=== PATIENT | female | born 1960 | race Two or more races ===

== ENCOUNTER 2019-11-24 19:59 | Inpatient (IN) | payer OTHER ==
[~2019-11-24] VITALS: Ht 152.4 cm; Wt 115.0 kg
[2019-11-24] MEDS ORDERED: SODIUM CHLORIDE 0.9% 1,000 ML IV ONE (20:50)
[2019-11-24] MEDS ORDERED: IOHEXOL 300 MG/ML 100ML BOTTLE IJ ONE (21:01)
[2019-11-24 21:22] LABS: Basophils # (auto) 0 10 ^3/uL (0-0.2); Basophils % (auto) 0.2 % (0.0-2.0); Eosinophils # (auto) 0 10 ^3/uL (0-0.8); Eosinophils % (auto) 0.2 % (0.0-7.0); Hematocrit 36.6 % (36.0-46.0); Hemoglobin 12.1 g/dL (12.2-16.2); Lymphocytes # (auto) 1.7 10 ^3/uL (0.4-5.4); Lymphocytes % (auto) 11.9 % (10.0-50.0); Mean Corpuscular Hemoglobin 30.2 pg (28.0-32.0); Mean Corpuscular Hgb Conc. 32.9 g/dL (32.0-36.0); Mean Corpuscular Volume 91.8 fL (80.0-100.0); Monocytes # (auto) 1.4 10 ^3/uL (0-1.3); Monocytes % (auto) 9.8 % (0.0-12.0); Neutrophils # (auto) 11.3 10 ^3/uL (1.6-8.6); Neutrophils % (auto) 77.9 % (37.0-80.0); Platelet Count (auto) 300 10^3/uL (140-450); Red Blood Cells 3.99 10^6/uL (4.0-5.20); Red Cell Distribution Width 13.9 % (11.8-14.3); White Blood Cell 14.5 10^3/uL (4.4-10.8)
[2019-11-24 21:40] LABS: INR 1.22 (0.9-1.15); Partial Thromboplastin Time 30.5 sec (23.64-32.05)
[2019-11-24 21:44] LABS: Alanine Aminotransferase 62 U/L (13-56); Albumin 2.2 g/dL (3.4-5.0); Amylase 52 U/L (25-115); Anion Gap 8 (5-15); Blood Urea Nitrogen 17 mg/dL (7-18); Calcium 8.1 mg/dL (8.5-10.1); Carbon Dioxide 31 mmol/L (21-32); Chloride 91 mmol/L (98-107); Glucose 112 mg/dL (74-106); Lipase 124 U/L (73-393); Magnesium 2.1 mg/dL (1.6-2.6); Potassium 3.6 mmol/L (3.5-5.1); Sodium 130 mmol/L (136-145)
[2019-11-24 21:48] LABS: Alkaline Phosphatase 201 U/L (45-117); Aspartate Aminotransferase 94 U/L (15-37); BUN/Creatinine Ratio 18.9; Bilirubin, Total 1.3 mg/dL (0.2-1.0); GFR African American 82 mL/min; GFR Non-African American 68 mL/min; Total Protein 7.6 g/dL (6.4-8.2)
[2019-11-24] MEDS ORDERED: PIPERACILLIN-TAZOB 3.375GM 100 ML IV ONE (22:45)
[2019-11-24] MEDS ORDERED: VANCOMYCIN 1GM/250ML 250 ML IV ONE (22:45)
[2019-11-24] MEDS ORDERED: MORPHINE SULFATE 4 MG/ML SYR/VIAL IV ONE (23:00)
[2019-11-24] MEDS ORDERED: ONDANSETRON HCL 4 MG/2 ML VIAL IV ONE (23:00)
[2019-11-25] VITALS (41 sets, daily range): BP systolic 82–156; BP diastolic 33–80
[2019-11-25] MEDS ORDERED: ONDANSETRON HCL 4 MG/2 ML VIAL IV PRN (02:15)
[2019-11-25] MEDS: SODIUM CHLORIDE 0.9% 1,000 ML IV SCH ×2 (02:34→13:22)
[2019-11-25] MEDS ORDERED: MORPHINE SULF INJ 2 MG/ML SYRINGE 1ML IV PRN ×2 (02:45→15:15)
[2019-11-25] MEDS ORDERED: NITROGLYCERIN 0.4 MG SL TAB SL PRN (02:45)
--- NOTE | 2019-11-25 03:50 | NUR ---
Telemetry admit from [facility] FARRARMARCELLA admitted to Telemetry unit after SBAR received. Patient oriented to Rosa Cabrera, primary RN, unit, room, bed, and unit policies regarding patient care and visiting hours. Patient now on continuous telemetry monitoring, tele box # 58 and telemetry reading on arrival to unit is SR. Patient placed on bedside oxygen, weighed by bedscale and encouraged to call if they need something. All questions and concerns addressed, patient verbalized understanding.
--- NOTE | 2019-11-25 04:58 | NUR ---
Patient ambulating Patient ambulated with standby assist to restroom. Steady, even gait.
[2019-11-25] MEDS: MORPHINE SULFATE 4 MG/ML SYR/VIAL IV PRN ×2 (05:40→09:35)
[2019-11-25] MEDS ORDERED: metroNIDAZOLE 500MG/100ML 100 ML IV SCH (06:00)
[2019-11-25] MEDS: PIPERACILLIN-TAZOB 3.375GM 100 ML IV SCH ×3 (06:27→18:00)
--- NOTE | 2019-11-25 06:28 | NUR ---
Family updated Family called regarding update on patient. All questions answered and family updated on plan of care. Will continue to monitor.
[2019-11-25] MEDS ORDERED: PANTOPRAZOLE 40 MG/10 ML VIAL INJ IV SCH (10:00)
[2019-11-25 10:29] LABS: Urine Bacteria FEW /hpf (None Seen); Urine Blood Negative /uL (Negative); Urine WBC 3 /hpf (0 - 5)
[2019-11-25 10:35] LABS: Urine Specific Gravity > 1.050 (1.001-1.035)
[2019-11-25] MEDS ORDERED: GLYCOPYRROLATE 0.2 MG/ML 1ML VIAL ONE (11:39)
[2019-11-25] MEDS ORDERED: MIDAZOLAM HCL 1MG/1ML-2 ML VIAL ONE ×2 (11:39→14:42)
[2019-11-25] MEDS ORDERED: SODIUM CHLORIDE LOCK 10 ML ONE (11:39)
[2019-11-25] MEDS ORDERED: PROPOFOL 10 MG/ML 20 ML IV ONE (11:39)
[2019-11-25] MEDS ORDERED: MEPERIDINE HCL (50 MG/ML) 1 ML VIAL ONE (11:39)
[2019-11-25] MEDS ORDERED: NEOSTIGMINE 1 MG/ML INJ (10mg/10ML VIAL) ONE (11:39)
[2019-11-25] MEDS ORDERED: fentaNYL CITRATE 100 MCG/2 ML VL ONE ×2 (11:39→14:09)
[2019-11-25] MEDS ORDERED: ONDANSETRON HCL 4 MG/2 ML VIAL ONE (11:39)
[2019-11-25] MEDS ORDERED: ROCURONIUM 10MG/ML 10ML VIAL IV ONE (11:39)
--- NOTE | 2019-11-25 12:06 | NUR ---
TAKEN TO PRE OP REPORT GIVEN TO MICHELLE San
[2019-11-25] MEDS ORDERED: ceFAZolin 1GM/50ML 50 ML IV ONE (12:15)
[2019-11-25] MEDS ORDERED: POVIDONE IODINE 10 % TOPICAL OINT 30GM TOP ONE (12:26)
[2019-11-25] MEDS ORDERED: NOREPINEPHRINE 8 MG/250ML KIT 250 ML IV ONE (13:23)
--- NOTE | 2019-11-25 13:35 | NUR ---
OFF UNIT Addendum: 11/25/19 at 1336 by Chhaya Eldridge RN Amended: Links added.
--- NOTE | 2019-11-25 14:13 | NUR ---
REPORT GIVEN TO LINDA San PATIENT WILL BE GOING TO ICU
[2019-11-25] MEDS ORDERED: HYDROmorphone HCL 2 MG/ML VL ONE (14:15)
[2019-11-25] MEDS ORDERED: SODIUM CHLORIDE 0.9% 1,000 ML IV SCH (15:00)
[2019-11-25] MEDS ORDERED: VANCOMYCIN PER PHARMACY 0 MG IV SCH ×2 (15:00→16:00)
[2019-11-25] MEDS ORDERED: D5W/SOD CHL 0.45%/KCL 20MEQ 1,000 ML IV ONE (15:00)
--- NOTE | 2019-11-25 15:15 | NUR ---
consult for Advanced directive Per consult, Patient requesting info on Advanced directive. Patient has been provided with advanced directive. Addendum: 11/25/19 at 1516 by Leigha Mariscal Amended: Links added.
--- NOTE | 2019-11-25 15:18 | NUR ---
RECEIVED PATIENT FROM OR PER BED ON PORTABLE RESIDENTIAL SALES CONSULTANT AND PORTABLE O2 ACCOMPANIED PER DR COHEN, RN X 2 AND RT. PATIENT ON VENTILATOR - SEE CHARTED SETTINGS. PATIENT ON LEVOPHED AT 20MCG. ABD DRSG DRY AND INTACT WITH LOWER JPX1 AND BILAT UPPER ABD SHANE DRAINS X 2 - ALL ARE DRAINING SEROSANG DRNG. NG ATTACHED TO LIWS - NO DRNG OBTAINED. KING DRAINING SCANT AMT CLOUDY DK MELISSA URINE.
[2019-11-25] MEDS: ALBUMIN 25% 100 ML IV SCH ×3 (15:55→23:15)
[2019-11-25] MEDS: D5W/SOD CHL 0.45%/KCL 20MEQ 1,000 ML IV SCH ×2 (15:56→20:15)
--- NOTE | 2019-11-25 16:00 | NUR ---
DR GUZMAN VISITS AND EXAMINES PATIENT - ORDERS RECEIVED.
[2019-11-25 16:03] LABS: Hematocrit 35.2 % (36.0-46.0); Hemoglobin 11.4 g/dL (12.2-16.2); Mean Corpuscular Hemoglobin 30.4 pg (28.0-32.0); Mean Corpuscular Hgb Conc. 32.5 g/dL (32.0-36.0); Mean Corpuscular Volume 93.5 fL (80.0-100.0); Platelet Count (auto) 293 10^3/uL (140-450); Red Blood Cells 3.76 10^6/uL (4.0-5.20); Red Cell Distribution Width 14.5 % (11.8-14.3); White Blood Cell 17.9 10^3/uL (4.4-10.8)
[2019-11-25 16:05] LABS: Basophils % (manual) 0 (0.0-2.0); Blast Cells 0; Eosinophils % (manual) 0 (0-7); Promyelocytes % 0; Reactive Lymphocytes 0
[2019-11-25 16:15] LABS: Band Neutrophils % (manual) 22; Lymphocytes % (manual) 5 (10.0-50.0); Metamyelocytes % 6; Monocytes % (manual) 8 (0-12); Myelocytes % 1
--- NOTE | 2019-11-25 16:30 | NUR ---
DR CAI VISITS AND EXAMINES PATIENT-ORDERS RECEIVED.
--- NOTE | 2019-11-25 16:30 | NUR ---
DR CORRALES NOTIFIED OF PATIENT'S VS AND ABGS - ORDERS RECEIVED.
[2019-11-25 16:40] LABS: Calcium 7.2 mg/dL (8.5-10.1); Potassium 3.4 mmol/L (3.5-5.1)
[2019-11-25 16:41] LABS: BUN/Creatinine Ratio 11.2
[2019-11-25] MEDS ORDERED: VANCOMYCIN 1GM/250ML 250 ML IV SCH (17:00)
--- NOTE | 2019-11-25 17:00 | NUR ---
2D ECHO DONE AT BEDSIDE
--- NOTE | 2019-11-25 17:10 | NUR ---
JERAD SERVICE AIDE VISITS AND EXAMINES PATIENT-NO NEW ORDERS RECEIVED.
[2019-11-25] MEDS ORDERED: fentaNYL Drip 2500mCg/250mlNS 250 ML IV ONE (17:36)
--- NOTE | 2019-11-25 17:45 | NUR ---
SOLID PLASTERER SPOKE TO PATIENT'S DAUGHTER WHO IS AN RN - UPDATED HER ON PATIENT CONDITION - VERBALIZES UNDERSTANDING - TEARFUL - SUPPORT GIVEN. DAUGHTER REQUESTING TO VISIT - SUMMER INTERN NOTIFIED AND GRANTED PERMISSION DUE TO PATIENT'S CRITICAL CONDITION AND GUARDED PROGNOSIS. PATIENT'S SON PHONES - GIVEN MINIMAL UPDATE - VERBALIZED UNDERSTANDING OF PATIENT'S DAUGHTER TO BE LADIES UNDERWEAR OPERATOR.
[2019-11-25] MEDS: VANCOMYCIN 1GM/250ML 250 ML IV SCH (17:54)
[2019-11-25] MEDS: fentaNYL Drip 2500mCg/250mlNS 250 ML IV SCH (17:56)
[2019-11-25] MEDS: MIDAZOLAM DRIP 50 mg/50mL 50 ML IV SCH (17:57)
--- NOTE | 2019-11-25 18:30 | NUR ---
DR CORRALES NOTIFIED OF ABG RESULTS, VS, LOW URINE OUTPUT - NO NEW ORDERS RECEIVED.
--- NOTE | 2019-11-25 18:50 | NUR ---
PICC RN AT BEDSIDE TO PLACE PICC LINE.
[2019-11-25] MEDS: PROPOFOL 100 ML IV SCH (19:00)
--- NOTE | 2019-11-25 19:00 | NUR ---
Opening shift note: Primary RN Dariel received report on patient. Patient intubated ETT 7.0/23@LL, VENT settings: AC 18, TV 500, FIO2 40, PEEP 5, O2 Sat 100%, bilateral lungs clear. Solomon catheter draining via gravity with yellow urine. Safety precautions in place. Will continue to monitor.
[2019-11-25] MEDS: NOREPINEPHRINE 8 MG/250ML KIT 250 ML IV SCH (20:00)
--- NOTE | 2019-11-25 20:02 | NUR ---
PICC line placement Patient/Patient significant other educated on need for PICC line placement. All risks and benefits explained and all questions and concerns addressed prior to procedure. Noted past medical history and allergies with no contraindications. INR and Plt counts within acceptable range. 5 fr PICC line inserted via LEFT BASILIC vein using [employer] US and Tip Location System. Sterile technique with maximum barrier precautions utilized. Blood return obtained from each of 3 lumens and each flushed easily with NS using proper technique. PICC secured with Stat-lock; biodisc and occlusive dressing applied. Stat portable chest x-ray obtained for PICC tip placement. *Baseline Arm Circumference 38CM. PICC lot #[id number]. Note:TOOK 2 ATTEMPTS. SECOND ATTEMPT PLACED EASILY WITH NO RESISTANCE.
[2019-11-25] MEDS ORDERED: LIDOCAINE 1% (LOCAL ANESTH.) PF 5ml SDV ID ONE (20:15)
[2019-11-25] MEDS: SODIUM CHLOR 0.9% PF (SALINE LOCK) 10ML VIAL/SYR IV SCH (22:00)
[2019-11-25] MEDS: metroNIDAZOLE 500MG/100ML 100 ML IV SCH (22:00)
[2019-11-26] VITALS (90 sets, daily range): BP systolic 83–161; BP diastolic 33–108
--- NOTE | 2019-11-26 | NUR ---
SHANE DRAINS: SHANE#1 -50ML SANGUINEOUS DRAINAGE. SHANE#2 -50ML SANGUINEOUS DRAINAGE. SHANE#3 -30ML SANGUINEOUS DRAINAGE.
--- NOTE | 2019-11-26 01:00 | NUR ---
Care endorsed to Luther COKER.
[2019-11-26] MEDS: D5W/SOD CHL 0.45%/KCL 20MEQ 1,000 ML IV SCH ×2 (01:15→06:15)
[2019-11-26] MEDS: VANCOMYCIN 1GM/250ML 250 ML IV SCH (03:30)
[2019-11-26 04:06] LABS: Basophils # (auto) 0 10 ^3/uL (0-0.2); Basophils % (auto) 0.1 % (0.0-2.0); Eosinophils # (auto) 0 10 ^3/uL (0-0.8); Eosinophils % (auto) 0.1 % (0.0-7.0); Hematocrit 28.9 % (36.0-46.0); Hemoglobin 9.6 g/dL (12.2-16.2); Lymphocytes # (auto) 0.8 10 ^3/uL (0.4-5.4); Lymphocytes % (auto) 6.1 % (10.0-50.0); Mean Corpuscular Hemoglobin 31.2 pg (28.0-32.0); Mean Corpuscular Hgb Conc. 33.3 g/dL (32.0-36.0); Mean Corpuscular Volume 93.6 fL (80.0-100.0); Monocytes # (auto) 0.3 10 ^3/uL (0-1.3); Monocytes % (auto) 2.5 % (0.0-12.0); Neutrophils # (auto) 12.3 10 ^3/uL (1.6-8.6); Neutrophils % (auto) 91.2 % (37.0-80.0); Platelet Count (auto) 231 10^3/uL (140-450); Red Blood Cells 3.09 10^6/uL (4.0-5.20); Red Cell Distribution Width 14.7 % (11.8-14.3); White Blood Cell 13.5 10^3/uL (4.4-10.8)
[2019-11-26 04:17] LABS: Chloride 98 mmol/L (98-107); Magnesium 1.6 mg/dL (1.6-2.6); Sodium 129 mmol/L (136-145)
[2019-11-26 04:26] LABS: Alanine Aminotransferase 46 U/L (13-56); Albumin 2.4 g/dL (3.4-5.0); Alkaline Phosphatase 115 U/L (45-117); Anion Gap 7 (5-15); Aspartate Aminotransferase 71 U/L (15-37); BUN/Creatinine Ratio 14.2; Bilirubin, Direct 1.5 mg/dL (0-0.2); Bilirubin, Total 2.3 mg/dL (0.2-1.0); Blood Urea Nitrogen 19 mg/dL (7-18); Calcium 6.7 mg/dL (8.5-10.1); Carbon Dioxide 24 mmol/L (21-32); Cholesterol < 50 mg/dL (< 200); GFR African American 52 mL/min; GFR Non-African American 43 mL/min; Glucose 331 mg/dL (74-106); HDL Cholesterol 6 mg/dL (40-59); LDL Cholesterol 8 mg/dL (< 100); Total Protein 5.6 g/dL (6.4-8.2); Triglycerides 56 mg/dL (< 150)
[2019-11-26] MEDS: metroNIDAZOLE 500MG/100ML 100 ML IV SCH ×3 (05:46→22:00)
[2019-11-26] MEDS: PIPERACILLIN-TAZOB 3.375GM 100 ML IV SCH ×3 (06:22→14:29)
[2019-11-26] MEDS ORDERED: MAGNESIUM SULFATE 1GM/100ML 100 ML IV ONE (08:00)
--- NOTE | 2019-11-26 08:00 | NUR ---
JERAD STALLWORTH LEGAL SERVICE SPECIALIST VISITS AND EXAMINES PATIENT - ORDER RECEIVED.
[2019-11-26] MEDS: NOREPINEPHRINE 8 MG/250ML KIT 250 ML IV SCH ×2 (09:51→15:06)
[2019-11-26] MEDS: SODIUM CHLOR 0.9% PF (SALINE LOCK) 10ML VIAL/SYR IV SCH ×2 (09:54→22:19)
[2019-11-26] MEDS: PANTOPRAZOLE 40 MG/10 ML VIAL INJ IV SCH (10:41)
--- NOTE | 2019-11-26 12:30 | NUR ---
DR MCGEE VISITS AND EXAMINES PATIENT -ORDERS RECEIVED.
[2019-11-26] MEDS: PHENYLEPHRINE IV 250 ML IV SCH ×2 (12:40→21:00)
--- NOTE | 2019-11-26 12:45 | NUR ---
RECEIVED CONSENT PER PHONE FROM PATIENT'S DAUGHTER FOR ARTERIAL INSERTION.
--- NOTE | 2019-11-26 12:45 | NUR ---
DR CORRALES VISITS AND EXAMINES PATIENT - ORDERS RECEIVED.
[2019-11-26] MEDS ORDERED: D5W/SOD CHL 0.45%/KCL 20MEQ 1,000 ML IV ONE (12:53)
[2019-11-26] MEDS ORDERED: D5W/SOD CHL 0.45%/KCL 20MEQ 1,000 ML IV SCH (13:00)
--- NOTE | 2019-11-26 13:00 | NUR ---
DR CORRALES PHONES PATIENT'S DAUGHTER - GAVE UPDATE ON CURRENT PATIENT CONDITION, QUESTIONS REGARDING SURGERY, POC AND CRITICAL PROGNOSIS - DAUGHTER VERBALIZES UNDERSTANDING.
[2019-11-26] MEDS: LINEZOLID 600MG/300ML 300 ML IV SCH ×2 (14:45→22:00)
[2019-11-26] MEDS ORDERED: MEROPENEM 1GM IVPB 100 ML IV SCH (14:45)
--- NOTE | 2019-11-26 14:45 | NUR ---
DR CAI VISITS AND EXAMINES PATIENT - ORDERS RECEIVED.
--- NOTE | 2019-11-26 16:30 | NUR ---
DR DENT AT BEDSIDE - PLACED RIGHT FEMORAL A-LINE
[2019-11-26] MEDS: PROPOFOL 100 ML IV SCH (16:41)
--- NOTE | 2019-11-26 17:30 | NUR ---
DR CORRALES NOTIFIED OF TEMP 101.4 - ORDERS RECEIVED.
[2019-11-26] MEDS ORDERED: ACETAMINOPHEN 650 MG RECT SUPP PR PRN (17:45)
[2019-11-26 17:48] LABS: Hemoglobin 9.2 g/dL (12.2-16.2)
[2019-11-26 17:52] LABS: Hematocrit 29.6 % (36.0-46.0)
[2019-11-26 18:06] LABS: Potassium 5.3 mmol/L (3.5-5.1)
[2019-11-26 18:12] LABS: BUN/Creatinine Ratio 9.4; Calcium 6.1 mg/dL (8.5-10.1)
[2019-11-26] MEDS: MIDAZOLAM DRIP 50 mg/50mL 50 ML IV SCH ×2 (18:14→19:14)
--- NOTE | 2019-11-26 18:25 | NUR ---
DR CORRALES NOTIFIED OF GLUCOSE 673 AND REMAINDER OF BMP - ORDERS RECEIVED.
[2019-11-26] MEDS ORDERED: InsuLIN R (HUMAN) 100 UNITS in SODIUM CHL 0.9% 99 ML IV SCH (18:26)
[2019-11-26] MEDS ORDERED: DEXTROSE (50%) 50ML SYRG IV PRN (18:30)
--- NOTE | 2019-11-26 18:40 | NUR ---
DR CORRALES NOTIFIED OF ABG RESULTS- NO NEW ORDERS RECEIVED.
[2019-11-26] MEDS: MEROPENEM 1GM IVPB 100 ML IV SCH (18:47)
[2019-11-26] MEDS: fentaNYL Drip 2500mCg/250mlNS 250 ML IV SCH (18:54)
[2019-11-26] MEDS: SODIUM CHLORIDE 0.9% 1,000 ML IV SCH (18:55)
[2019-11-26] MEDS: ACCU-CHEK COMFORT CURVE STRIP VI SCH ×3 (19:30→22:30)
--- NOTE | 2019-11-26 21:30 | NUR ---
FIRST AID ATTENDANT NOTIFIED PATIENT'S DAUGHTER MICHELLE OF PATIENT CONDITION - VERBALIZED UNDERSTANDING.
[2019-11-27] VITALS (104 sets, daily range): BP systolic 70–163; BP diastolic 32–105
[2019-11-27 02:35] LABS: Anion Gap 8 (5-15); Blood Urea Nitrogen 8 mg/dL (7-18); Carbon Dioxide 22 mmol/L (21-32); Chloride 103 mmol/L (98-107); Glucose 153 mg/dL (74-106); Potassium 3.9 mmol/L (3.5-5.1)
[2019-11-27 02:36] LABS: Alanine Aminotransferase 41 U/L (13-56); Alkaline Phosphatase 115 U/L (45-117); Aspartate Aminotransferase 57 U/L (15-37); BUN/Creatinine Ratio 10.8; Bilirubin, Total 2.4 mg/dL (0.2-1.0); Calcium 7.2 mg/dL (8.5-10.1); GFR African American 103 mL/min; GFR Non-African American 85 mL/min; Total Protein 5.4 g/dL (6.4-8.2)
[2019-11-27 02:37] LABS: Sodium 133 mmol/L (136-145)
[2019-11-27 03:59] LABS: Basophils # (auto) 0 10 ^3/uL (0-0.2); Basophils % (auto) 0.2 % (0.0-2.0); Eosinophils # (auto) 0.1 10 ^3/uL (0-0.8); Eosinophils % (auto) 0.5 % (0.0-7.0); Hematocrit 32.4 % (36.0-46.0); Hemoglobin 10.5 g/dL (12.2-16.2); Lymphocytes # (auto) 1.6 10 ^3/uL (0.4-5.4); Lymphocytes % (auto) 9.1 % (10.0-50.0); Mean Corpuscular Hemoglobin 29.9 pg (28.0-32.0); Mean Corpuscular Hgb Conc. 32.4 g/dL (32.0-36.0); Mean Corpuscular Volume 92.1 fL (80.0-100.0); Monocytes # (auto) 0.8 10 ^3/uL (0-1.3); Monocytes % (auto) 4.4 % (0.0-12.0); Neutrophils % (auto) 85.8 % (37.0-80.0); Platelet Count (auto) 224 10^3/uL (140-450); Red Blood Cells 3.51 10^6/uL (4.0-5.20); Red Cell Distribution Width 14.6 % (11.8-14.3); White Blood Cell 17.5 10^3/uL (4.4-10.8)
[2019-11-27] MEDS: MEROPENEM 1GM IVPB 100 ML IV SCH ×2 (05:00→15:26)
[2019-11-27] MEDS: PHENYLEPHRINE IV 250 ML IV SCH ×3 (05:20→22:00)
[2019-11-27] MEDS: metroNIDAZOLE 500MG/100ML 100 ML IV SCH ×3 (06:00→22:00)
--- NOTE | 2019-11-27 08:00 | NUR ---
AM ASSESSMENT COMPLETED. ALL GTTS VERIFIED. ALL ALARMS VERIFIED. ORAL CARE RENDERED. PT CURRENTLY VENTILATED SEDATED S/P GALLBLADDER SURGERY, PT HAS 3 SHANE DRAINS TO BULB SUCTION. SHANE #1 DRAINING SEROUS FLUID SHANE #2 DRAINING BILE COLOR FLUID SHANE # 3 WITH MINIMAL SEROUS DRAINAGE. PT HAS AN ABDOMINAL BINDER IN PLACE SURGICAL DRESSING REMAINS CLEAN DRY AND INTACT. PT REMAINING SKIN REMAIN INTACT.
[2019-11-27] MEDS: NOREPINEPHRINE 8 MG/250ML KIT 250 ML IV SCH ×2 (08:14→15:20)
--- NOTE | 2019-11-27 08:50 | NUR ---
PT'S DAUGHTER CALLED TO GET A DETAIL UPDATE OF PT'S CONDITION UPDATED ON PT'S AM LABS CURRENT GTT'S . AM CHEST X-RAY RESULTS. PT'S DAUGHTER IS A HULL DRAFTER. PT'S DAUGHTER WILL CALL LATER TO HAVE PORTABLE PHONE PLACED IN PT'S EAR, SO SHE CAN SPEAK TO PT WHILE PT REMAINS ON VENTILATOR.
[2019-11-27] MEDS: PANTOPRAZOLE 40 MG/10 ML VIAL INJ IV SCH (09:26)
[2019-11-27] MEDS: LINEZOLID 600MG/300ML 300 ML IV SCH ×2 (09:26→22:00)
[2019-11-27] MEDS: SODIUM CHLOR 0.9% PF (SALINE LOCK) 10ML VIAL/SYR IV SCH ×2 (09:26→22:26)
[2019-11-27] MEDS ORDERED: FUROSEMIDE 40 MG/4 ML VIAL IV ONE (11:00)
--- NOTE | 2019-11-27 11:46 | NUR ---
Nutrition Assessment note: Please see attached link for complete assessment Est. Energy Needs ABW 86 [id number] kcal (17-20kcal/kg ABW), Est. Protein Needs: 86-94 gms/day (1.0-1.1 gms/kg Adj.BW). Addendum: 11/27/19 at [address]7 [address] Susan Ordoñez RD Amended: Links added.
[2019-11-27] MEDS: SODIUM CHLORIDE 0.9% 1,000 ML IV SCH ×2 (14:21→21:10)
--- NOTE | 2019-11-27 15:55 | NUR ---
PLACED ON CPAP BY RT HERR PT WAS FULLY AWAKE FOLLOWING COMMANDS. PT ONLY ON 25 MCG OF FENTANYL AT THIS TIME FOR COMFORT. PT JUST REPOSITIONED AT THIS TIME FOR COMFORT. PT UNDERSTANDS BOTH [place] AND [place]CC[place]. DR MARTINES ORDERED THE CPAP TRIAL.
[2019-11-27] MEDS: PROPOFOL 100 ML IV SCH (16:41)
--- NOTE | 2019-11-27 16:59 | NUR ---
RT NOTE: VM LEFT FOR DR. JOHNS FOR ABG RESULTS, AND LUNG MECHANICS FOR CPAP TRIAL.
--- NOTE | 2019-11-27 17:24 | NUR ---
CALLED AND LEFT A MESSAGE ON DR. JOHNS CELLPHONE WITH ABG AND WEANING PARAMETER'S RESULTS, LEFT CALL BACK #. HAD SAID IF NUMBERS WERE OK, PT COULD BE EXTUBATED. JUST WANTED TO RUN THE #'S BY HIM VC A LITTLE LOW, BUT EXPECTED CONSIDERING PT'S ABDOMINAL SURGERY. PT IS AWAKE BUT A LITTLE DROWSY. WILL GIVE SOME TIME FOR DOCTOR TO CALL BACK WITH EXTUBATION ORDERS. SUPERVISOR NET MAKINGSHEELA WORRELL.
[2019-11-27] MEDS: fentaNYL Drip 2500mCg/250mlNS 250 ML IV SCH (17:33)
--- NOTE | 2019-11-27 17:43 | NUR ---
MD CALLED BACK HE OK FOR PT TO BE EXTUBATED.
--- NOTE | 2019-11-27 19:57 | NUR ---
ADMITTED WITH ABDOMINAL PAIN, DISTENTION. 11/24 DR CORRALES PERFORMED SURGERY FOR A GANGRENOUS PERFORATED GALLBLADDER. 11/27/19 EXTUBATED AT 1825. ON COOL MIST FACE MASK. NGT REMAINS AND IS HOOKED TO LIS. KING IN PLACE AND IS DRAINING MELISSA LIQUID. HAD A ONE TIME DOSE OF LASIX TODAY WITH DIURESIS. MAINTENANCE FLUID AT 75CC/HR AND IS ON LEVOPHED. AT 14 MCG. MIDLINE INCISION WITH DRY DRESSING. 3 SHANE DRAINS. REMAINS NPO. BILATERAL MITTENS ON. 11/26/19 ARTERIAL LINE PLACED IN RIGHT FEMORAL.
--- NOTE | 2019-11-27 22:00 | NUR ---
PATIENT IS VERY SLEEPY. WAKES UP TO NAME. NOT FOLLOWING COMMANDS. REPOSITIONED TO HER RIGHT SIDE. OPENED UP ABDOMINAL BINDER TO VIEW INCISION AND SHANE SITES. INCISIONAL DRESSING IS CLEAN AND DRY. ALL 3 SHANE SITE DRESSING SHOW DRNG. ALL JPS ARE DRAINING. REFASTENED THE ABDOMINAL BINDER. PICC LINE DRESSING CHANGE. SITE OF ENTRY IS CLEAN, DRY AND NO REDNESS. SCDS ON. DOES NOT HELP WITH TURNING. LUNGS CLEAR. RT IN ROOM REMOVING THE COOL MIST AND APPLYING THE NASAL CANNULA. NOW ON 3LNP. O2 SAT IS 98%.
--- NOTE | 2019-11-27 23:29 | NUR ---
PATIENT PULLED OUT HER NGT.
[2019-11-28] VITALS (96 sets, daily range): BP systolic 77–157; BP diastolic 39–121
--- NOTE | 2019-11-28 | NUR ---
MOVED CUFF TO LEFT LOWER ARM. CUFF PRESSURE MUCH HIGHER. SINUS TACHYCARDIA WITH A RARE PVC. 3LNP. SATURATION GOOD. KEEPS TAKING DOWN GOWN AND EXPOSING HER BREASTS. I KEEP PULLING IT BACK UP. NO FEVER. DIAPHORETIC. NO CHANGE IN ABDOMINAL DRESSINGS. EMPTIED THE JPS. ALL PULSES PALPABLE. ALL EXTREMITIES ARE WARM.
[2019-11-28] MEDS: NOREPINEPHRINE 8 MG/250ML KIT 250 ML IV SCH (00:49)
--- NOTE | 2019-11-28 03:00 | NUR ---
CHG BATH AND COMPLETE LINEN CHANGE . ABDOMINAL DRESSING CHANGE. INCISION WELL APPROXIMATED/STAPLED/NO REDNESS OR DRNG. JPS ARE DRAINING.
--- NOTE | 2019-11-28 04:00 | NUR ---
LEVO AT 4 MCG. PATIENT REMAINS SLEEPY. DOES NOT CONVERSE OR TRY TO OPEN EYES ANY MORE THAN WHAT SHE NEEDS TO. REPOSITIONED. PRODUCTIVE COUGGH OF THICK YELLOW SECRETIONS
[2019-11-28 04:01] LABS: Basophils % (auto) 0.4 % (0.0-2.0); Eosinophils % (auto) 0.8 % (0.0-7.0); Lymphocytes % (auto) 11.7 % (10.0-50.0); Monocytes % (auto) 5.2 % (0.0-12.0); Neutrophils % (auto) 81.9 % (37.0-80.0); Nucleated Red Blood Cells % 0.1 %; White Blood Cell 13.6 10^3/uL (4.4-10.8)
[2019-11-28 04:02] LABS: Basophils # (auto) 0 10 ^3/uL (0-0.2); Eosinophils # (auto) 0.1 10 ^3/uL (0-0.8); Hematocrit 31.3 % (36.0-46.0); Hemoglobin 10.4 g/dL (12.2-16.2); Lymphocytes # (auto) 1.6 10 ^3/uL (0.4-5.4); Mean Corpuscular Hemoglobin 30.6 pg (28.0-32.0); Mean Corpuscular Hgb Conc. 33.4 g/dL (32.0-36.0); Mean Corpuscular Volume 91.7 fL (80.0-100.0); Monocytes # (auto) 0.7 10 ^3/uL (0-1.3); Neutrophils # (auto) 11.1 10 ^3/uL (1.6-8.6); Platelet Count (auto) 195 10^3/uL (140-450); Red Blood Cells 3.41 10^6/uL (4.0-5.20); Red Cell Distribution Width 14.5 % (11.8-14.3)
[2019-11-28 04:14] LABS: Albumin 1.6 g/dL (3.4-5.0); Calcium 7.2 mg/dL (8.5-10.1); Potassium 4.3 mmol/L (3.5-5.1)
[2019-11-28 04:16] LABS: BUN/Creatinine Ratio 18.9
[2019-11-28 04:19] LABS: Bilirubin, Total 2.3 mg/dL (0.2-1.0); Total Protein 5.1 g/dL (6.4-8.2)
--- NOTE | 2019-11-28 06:00 | NUR ---
SHE WILL NOT OPEN HER EYES AND TALK TO ME. YET, SHE SEEMS TO UNDERSTAND WHAT WE SAY. DOES NOT HELP WITH TURNING. JPS EMPTIED. UNABLE TO WEAN DOWN THE LEVOPHED MORE. FEBRILE.
[2019-11-28] MEDS: PHENYLEPHRINE IV 250 ML IV SCH ×2 (06:20→14:40)
[2019-11-28] MEDS: metroNIDAZOLE 500MG/100ML 100 ML IV SCH ×3 (06:29→21:36)
--- NOTE | 2019-11-28 06:31 | NUR ---
Respiratory note: PT RESTING COMFORTABLY. NO RESPIRATORY DISTRESS NOTED. SPO2 97% ON 3L NC, HR 81, RR 32, BS COARSE/DIMINISHED BILATERALLY. WILL CONTINUE TO MONITOR PT.
--- NOTE | 2019-11-28 06:55 | NUR ---
SHANE #1 150CC SERO-SANG #2 105CC BILE COLOR #3 17 CC OF SEROUS CL
[2019-11-28] MEDS ORDERED: HYDROCORTISONE SOD SUCC 100 MG/2ML INJ VIAL IV ONE (08:45)
[2019-11-28] MEDS: MEROPENEM 1GM IVPB 100 ML IV SCH ×3 (09:16→18:24)
[2019-11-28] MEDS: SODIUM CHLORIDE 0.9% 1,000 ML IV SCH ×2 (10:30→23:50)
[2019-11-28] MEDS: PANTOPRAZOLE 40 MG/10 ML VIAL INJ IV SCH (10:40)
[2019-11-28] MEDS: SODIUM CHLOR 0.9% PF (SALINE LOCK) 10ML VIAL/SYR IV SCH ×2 (10:40→21:36)
[2019-11-28] MEDS: HYDROmorphone HCL 2 MG/ML VL IV PRN (10:41)
[2019-11-28] MEDS: LINEZOLID 600MG/300ML 300 ML IV SCH ×2 (10:42→21:42)
[2019-11-28] MEDS ORDERED: FUROSEMIDE 40 MG/4 ML VIAL IV ONE (15:00)
[2019-11-28] MEDS: FLUCONAZOLE 200MG/100ML 100 ML IV SCH ×2 (15:44→16:53)
--- NOTE | 2019-11-28 19:45 | NUR ---
SBP LOW PER CUFF. REPOSITIONED PATIENT TO BACK AND SYSTOLIC IMPROVED. NO LEVOPHED
--- NOTE | 2019-11-28 20:00 | NUR ---
ADMITTED ON 11/24/2019. ABDOMINAL PAIN. ON 11/25/19 DR CORRALES TOOK HER TO THE OR AND REMOVED A GANGRENOUS GALLBLADDER. HAS A MIDLINE INCISION AND 3 SHANE DRAINS. SPEAKS ON BRUNEIAN. DOES NOT OPEN HER EYES AND ANSWER TO WELSH. LUNGS CLEAR. O2 AT 3LNP. NO DYSPNEA. SCDS ON. PICC LINE WITH MAINTENANCE FLUID. NSR WITHOUT ECTOPY. OBESE, LARGE, ROUND , SOFT ABDOMEN WITH ABDOMINAL BINDER ON. KING IN POSITION AND IS TO A DOWN DRAIN BAG. URINE IS AN MELISSA COLOR WITH SEDIMENT. YADIRA DOWNGRADE ORDERS.
--- NOTE | 2019-11-28 20:15 | NUR ---
ICE BAG TO BACK OF NECK. ARTERIAL LINE IN RIGHT FEMORAL IS CLOSE TO THE CUFF. USING CUFF PRESSURES FOR RELIABILITY. OCCASIONALLY THE ARTERIAL LINE HAS A BAD WAVEFORM . TEMP 98.6 AXILLARY
[2019-11-28] MEDS ORDERED: HYDROCORTISONE SOD SUCC 100 MG/2ML INJ VIAL IV SCH (22:00)
--- NOTE | 2019-11-28 22:00 | NUR ---
OPENED UP EYES AND SAID THANK YOU WHEN WE TURNED HER. JPS IN GOOD POSITION. ABDOMINAL BINDER ON. NSR WITHOUT ECTOPY. REMAINS OFF OF LEVOPHED. STILL DOES NOT ASSIST WITH TURNING.
[2019-11-29] VITALS (81 sets, daily range): BP systolic 73–119; BP diastolic 38–72
--- NOTE | 2019-11-29 | NUR ---
DECORATIVE CUTTING MACHINE TENDER FOR ASSESSMENT. PATIENT STATED THAT SHE WAS AFRAID SHE WOULD . SHE WANTED TO KNOW HOW SHE WAS DOING. C/O PAIN IN RIGHT ABDOMEN. INFORMED OF HER SURGERY AND IMPROVING LABS AND CONDITION. NSR WITHOUT ECTOPY. SBP STABLE OFF OF LEVOPHED. PICC LINE SHOWS NO REDNESS OR SWELLING
[2019-11-29] MEDS: HYDROmorphone HCL 2 MG/ML VL IV PRN (01:09)
--- NOTE | 2019-11-29 02:00 | NUR ---
VSS. RESPONDED WELL TO THE DILAUDID. HR AND BLOOD PRESSURE DID DROP. RR DROPPED TO 13. PATIENT GOT VERY SLEEPY. SCALE INSTALLER HELPED WITH CARE. NSR WITHOUT ECTOPY. ABDOMEN SOFT. DRESSINGS DRY. PICC LINE DRESSING CLEAN, DRY WITH BIOPATCH IN PLACE.
--- NOTE | 2019-11-29 04:00 | NUR ---
AM LABS DRAWN. VSS. ARTERIAL LINE IS POSITIONAL. KING DRAINING CLEAR MELISSA LIQUID TO DOWN DRAIN BAG. PATIENT MOVES ALL EXTREMITIES TO COMMAND. URINE OUTPUT IS LOWER. NSR WITHOUT ECTOPY. ARTERIAL LINE WAVEFORM IS DAMPENED/POSITIONAL.
[2019-11-29 05:05] LABS: Basophils # (auto) 0 10 ^3/uL (0-0.2); Basophils % (auto) 0.1 % (0.0-2.0); Eosinophils # (auto) 0 10 ^3/uL (0-0.8); Hematocrit 30.2 % (36.0-46.0); Hemoglobin 9.9 g/dL (12.2-16.2); Lymphocytes % (auto) 8.4 % (10.0-50.0); Mean Corpuscular Hemoglobin 30.4 pg (28.0-32.0); Mean Corpuscular Hgb Conc. 32.6 g/dL (32.0-36.0); Mean Corpuscular Volume 93.3 fL (80.0-100.0); Monocytes # (auto) 0.5 10 ^3/uL (0-1.3); Monocytes % (auto) 4.5 % (0.0-12.0); Neutrophils # (auto) 9.9 10 ^3/uL (1.6-8.6); Platelet Count (auto) 169 10^3/uL (140-450); Red Blood Cells 3.24 10^6/uL (4.0-5.20); Red Cell Distribution Width 14.8 % (11.8-14.3); White Blood Cell 11.4 10^3/uL (4.4-10.8)
[2019-11-29 05:23] LABS: Potassium 4.7 mmol/L (3.5-5.1)
[2019-11-29 05:35] LABS: Albumin 1.6 g/dL (3.4-5.0); BUN/Creatinine Ratio 37.7; Bilirubin, Total 1.5 mg/dL (0.2-1.0); Calcium 7.4 mg/dL (8.5-10.1); Total Protein 5.1 g/dL (6.4-8.2)
[2019-11-29] MEDS: metroNIDAZOLE 500MG/100ML 100 ML IV SCH ×3 (05:43→23:58)
--- NOTE | 2019-11-29 06:00 | NUR ---
REPOSITIONED. JPS EMPTIED. NSR WITHOUT ECTOPY. SBP STABLE.IV SITE SHOWS NO REDNESS OR SWELLING.
--- NOTE | 2019-11-29 06:10 | NUR ---
SHANE #1 70CC SEROUS SHANE#2 100CC DARK BILE COLOR SHANE#3 10CC SEROUS
--- NOTE | 2019-11-29 08:30 | NUR ---
DR CORRALES PAGED RE: LOW URINE OUTPUT AND CONCENTRATED URINE.
--- NOTE | 2019-11-29 08:54 | NUR ---
DR CORRALES RETURNS CALL RE: LOW URINE OUTPUT - ORDER RECEIVED.
[2019-11-29] MEDS ORDERED: SODIUM CHLORIDE 0.9% 1,000 ML IV ONE (09:00)
--- NOTE | 2019-11-29 09:15 | NUR ---
Pt not seen today, pt on hold per RN. Addendum: 11/29/19 at 1231 by Adalberto Porter FIRE PREVENTION CHIEF Amended: Links added.
--- NOTE | 2019-11-29 09:45 | NUR ---
NEURO: PATIENT SLOW TO RESPOND TO QUESTIONS VIA ESTONIAN SPEAKING FITNESS PLAN COORDINATOR. PERRLA 3MM AND BRISK. PATIENT MOVES ALL EXTREMITIES AND FOLLOWS COMMANDS BUT VERY SLOWLY - RT NOTIFIED FOR ABG ORDER.
[2019-11-29] MEDS: MEROPENEM 1GM IVPB 100 ML IV SCH ×3 (10:00→18:50)
--- NOTE | 2019-11-29 10:00 | NUR ---
DR CORRALES VISITS AND EXAMINES PATIENT - ORDERS RECEIVED.
[2019-11-29] MEDS: SODIUM CHLORIDE 0.9% 1,000 ML IV SCH ×3 (10:30→23:44)
--- NOTE | 2019-11-29 11:38 | NUR ---
Nutrition Follow-up Wt.: 121.0 kg Pt`s extubated sleeping with no family by bedside. pt s/p lap eddie. pt continues to be NPO per RN and no new diet orders Est. Energy Needs ABW 86 [id number] kcal (17-20kcal/kg ABW), Est. Protein Needs: 86-94 gms/day (1.0-1.1 gms/kg Adj.BW). Labs: BUN 20 H, CA 7.4 L, ALB 1.6 L, GLU 132 H GI: Pt has no BM reported per RN doc Skin: Jeff scale 22 low risk incision at site of sx PES: 1) Altered nutrition related lab values r.t current chronic medical condition aeb hyperglycemia, severe hypoalb, hyperbil 2) decreased nutrient needs r.t adiposity aeb pt`s high BMI of 52.2 kgm2 3) Partially resolved: Impaired swallowing r/t current medical condition aeb pt`s intubated sedated with order of NPO Recommendations: 1) advance diet as medically feasible. 2) consider alternate nutrition support if pt continues to be NPO > 48 hrs. 3) refer to [employer] dietitian on DC. 4) continue current plan of care. 5) F/u high 2-3 days
--- NOTE | 2019-11-29 11:40 | NUR ---
DR CORRALES NOTIFIED OF CXR RESULTS - ORDER RECEIVED.
[2019-11-29] MEDS ORDERED: FUROSEMIDE 20 MG/2 ML VIAL IV ONE (11:45)
[2019-11-29] MEDS: PANTOPRAZOLE 40 MG/10 ML VIAL INJ IV SCH (12:03)
[2019-11-29] MEDS: FLUCONAZOLE 200MG/100ML 100 ML IV SCH ×2 (12:03→13:50)
[2019-11-29] MEDS: SODIUM CHLOR 0.9% PF (SALINE LOCK) 10ML VIAL/SYR IV SCH ×2 (12:03→22:02)
--- NOTE | 2019-11-29 12:32 | NUR ---
DR MCGEE VISITS AND EXAMINES PATIENT - ORDERS RECEIVED.
--- NOTE | 2019-11-29 13:30 | NUR ---
CT HEAD REPORT CALLED TO DR MCGEE - NO NEW ORDERS RECEIVED.
--- NOTE | 2019-11-29 14:30 | NUR ---
STAPLER COIL UNIT PHONED PATIENT'S DAUGHTER - UPDATED ON RESULTS OF HEAD CT - VERBALIZED UNDERSTANDING.
[2019-11-29] MEDS: LINEZOLID 600MG/300ML 300 ML IV SCH (15:00)
--- NOTE | 2019-11-29 16:00 | NUR ---
PATIENT MORE ALERT AND AWAKE THIS PM. RESPONDS TO QUESTIONS MORE RAPIDLY THAN THIS AM.
--- NOTE | 2019-11-29 17:30 | NUR ---
LANGUAGE AND LITERATURE DIVISION CHAIR PHONED PATIENT'S DAUGHTER WITH UPDATE ON PATIENT CONDITION - DAUGHTER ABLE TO SPEAK TO PATIENT VIA PORTABLE PHONE. VERBALIZES UNDERSTANDING.
--- NOTE | 2019-11-29 17:45 | NUR ---
PATIENT'S SON PHONES - ABLE TO SPEAK TO PATIENT VIA PORTABLE PHONE.
[2019-11-29] MEDS: ALBUTEROL SULF 2.5 MG/0.5ML(0.5%) NEB SOLN NEB SCH (18:26)
--- NOTE | 2019-11-29 19:50 | NUR ---
OPEN NOTES PATIENT OPEN EYES TO CALL. NIGERIAN SPEAKING BUT CAN UNDERSTAND LITTLE BIT LIBERIAN. TRANSLATION DONE BY ANOTHER RN WHEN DOING ASSESSMENT. PATIENT IS WEAK STILL BUT ABLE TO MOVE ALL LIMBS. PASSIVE EXERCISES DONE. ORAL CARE DONE. NPO. ON NASAL CANNULA AT 3L/MIN SATURATING 97-99%. NO DIFFICULTY BREATHING NOTED. NO COMPLAINS OF PAIN ALSO. RIGHT FEMORAL ARTERIAL LINE IN PLACE, LEVELED AND ZEROED - WAVE FORM GOOD. BP FLUCTUATES FROM 88-100 MMHG ON BOTH ARTERIAL AND NIBP. - WILL CLOSELY MONITOR UPPER AND LOWER LIMBS EDEMA NOTED - ELEVATED REPOSITIONED TO HER SIDE. ABDOMINAL INCISION -DRESSING DRY AND INTACT. SHANE X 3 WITH SEROUS TO BILIOUS DRAINAGE NOTED. ABDOMINAL BINDER IN PLACE FULL ASSESSMENT DONE -REFER INTERVENTIONS WILL CONTINUE TO MONITOR
--- NOTE | 2019-11-29 21:16 | NUR ---
Family updated on pt status Daughter of MARCELLA FARRAR called, correct password given. updated on patient's status and condition. All questions and concerns addressed. verbalized understanding.
--- NOTE | 2019-11-29 22:04 | NUR ---
FLAGYL AND ZYVOX TIME RE-ADJUSTED IT WAS GIVEN LATE IN THE DAY SHIFT
--- NOTE | 2019-11-29 22:05 | NUR ---
INCENTIVE SPIROMETRY PATIENT ABLE TO DO IS UP TO 500MLS X 10 TIMES ENCOURAGED PATIENT TO USE IT WHEN AWAKE
--- NOTE | 2019-11-29 22:30 | NUR ---
INCENTIVE SPIROMETRY PATIENT ABLE TO DO IS UP TO 500MLS X 10 TIMES
[2019-11-30] VITALS (55 sets, daily range): BP systolic 86–135; BP diastolic 40–84
--- NOTE | 2019-11-30 | NUR ---
INCENTIVE SPIROMETRY DONE
[2019-11-30] MEDS: ALBUTEROL SULF 2.5 MG/0.5ML(0.5%) NEB SOLN NEB SCH ×4 (00:32→18:26)
[2019-11-30] MEDS: LINEZOLID 600MG/300ML 300 ML IV SCH ×3 (01:06→22:49)
[2019-11-30] MEDS: MEROPENEM 1GM IVPB 100 ML IV SCH ×3 (02:09→15:36)
[2019-11-30 05:28] LABS: Hematocrit 28.6 % (36.0-46.0); Hemoglobin 9.5 g/dL (12.2-16.2); Mean Corpuscular Hemoglobin 30.7 pg (28.0-32.0); Mean Corpuscular Hgb Conc. 33.2 g/dL (32.0-36.0); Mean Corpuscular Volume 92.4 fL (80.0-100.0); Platelet Count (auto) 216 10^3/uL (140-450); Red Cell Distribution Width 14.9 % (11.8-14.3); White Blood Cell 9.2 10^3/uL (4.4-10.8)
[2019-11-30 05:30] LABS: Basophils % (manual) 0 (0.0-2.0); Blast Cells 0; Eosinophils % (manual) 0 (0-7); Metamyelocytes % 0; Myelocytes % 0; Promyelocytes % 0; Reactive Lymphocytes 0
--- NOTE | 2019-11-30 05:30 | NUR ---
HYGIENE PATIENT CLEANED. LINENS CHANGED. ORAL CARE DONE REPOSITIONED
[2019-11-30 05:38] LABS: Calcium 7.3 mg/dL (8.5-10.1); Magnesium 2.2 mg/dL (1.6-2.6)
[2019-11-30 05:40] LABS: BUN/Creatinine Ratio 52.1
--- NOTE | 2019-11-30 05:45 | NUR ---
ABDOMINAL AND SHANE DRESSING ABDOMINAL DRESSING CHANGED. CLEANED WITH CHG SWABS. AIDEN INTACT. COVERED WITH PRIMAPORE DRESSING SHANE DRESSING CHANGED. SITE CLEANED WITH CHG SWABS. COVERED WITH OPTIFOAM GENTLE
--- NOTE | 2019-11-30 06:00 | NUR ---
SHANE DRAIN #1 70 ML SEROSANGUINEOUS #2 140 ML BILIOUS #3 10 ML SEROUS
--- NOTE | 2019-11-30 06:00 | NUR ---
NCENTIVE SPIROMETRY PATIENT ABLE TO DO IS UP TO 500MLS X 10 TIMES
--- NOTE | 2019-11-30 06:30 | NUR ---
DAUGHTER CALLED TWICE UNABLE TO ANSWER CALL THIS RN IS DOING HYGIENE AND BREATHING EXERCISES TO PATIENT
[2019-11-30 06:47] LABS: Band Neutrophils % (manual) 2; Lymphocytes % (manual) 14 (10.0-50.0); Monocytes % (manual) 6 (0-12)
[2019-11-30] MEDS: metroNIDAZOLE 500MG/100ML 100 ML IV SCH ×3 (06:48→22:49)
--- NOTE | 2019-11-30 09:45 | NUR ---
PHYSICAL THERAPY P.T AT BEDSIDE STATING HE HELPED PATIENT TO EDGE OF BED FOR A FEW MINUTES. PT NOTED BACK IN BED. NO DISTRESS NOTED. VSS.
[2019-11-30] MEDS: PANTOPRAZOLE 40 MG/10 ML VIAL INJ IV SCH (09:56)
[2019-11-30] MEDS: SODIUM CHLOR 0.9% PF (SALINE LOCK) 10ML VIAL/SYR IV SCH ×2 (09:56→22:49)
[2019-11-30] MEDS: FLUCONAZOLE 200MG/100ML 100 ML IV SCH ×3 (09:56→11:35)
[2019-11-30] MEDS: HYDROCORTISONE SOD SUCC 100 MG/2ML INJ VIAL IV SCH (09:56)
--- NOTE | 2019-11-30 10:00 | NUR ---
Family updated on pt status Family of CHARNAMARCELLA updated on patient's status and condition. All questions and concerns addressed. Daughter verbalized understanding.
[2019-11-30] MEDS: SODIUM CHLORIDE 0.9% 1,000 ML IV SCH ×2 (10:30→18:43)
--- NOTE | 2019-11-30 10:30 | NUR ---
Incentive Spirometer Patient encouraged to complete I.S. Patient needing reinforcement. Patient able to reach 750ml during inspiration. Bilateral hands noted to be weak but patient attempting to hold to mouth. Will continue to encourage I.S. 10 breaths at least every 1hr when awake.
--- NOTE | 2019-11-30 15:06 | NUR ---
assessment Patient is a 59 year old female who is in ICU. Per patients daughter Melanie prior to admission patient lived home with her and was independent. Per Melanie patient is here visiting her son when she fell ill. Patient was having abdominal pain and fatigue and patients son brought her to ER and she was admitted. Patient lives [place] and will return to [place] on discharge. I informed Melanie patients post discharge needs to be determined prior to discharge. Melanie verbalized understanding. Addendum: 11/30/19 at 1509 by Leigha DICKSON Amended: Links added.
--- NOTE | 2019-11-30 15:30 | NUR ---
IV removal Right arterial line DC'd with sterile technique, catheter fully intact. Pressure dressing applied to site. Patient tolerated procedure well.
--- NOTE | 2019-11-30 15:30 | NUR ---
ICE CHIPS NEW ORDER FOR ICE CHIPS ONLY. PT TOLERATED ICE CHIPS WELL. ABD REMAINS SOFT, TENDER UPON PALPATION, HYPOACTIVE BOWEL SOUNDS. PATIENT EDUCATED TO NOTIFY NURSE IF FLATUS IS PRESENT. PT VERBALIZED UNDERSTANDING.
--- NOTE | 2019-11-30 15:45 | NUR ---
PAIN PATIENT HAVING PAIN TO ABD. SPLINTING TEACHINGS COMPLETED TO ASSIST WITH PAIN MANAGEMENT. PATIENT OFFERED IV PAIN MEDICATION BUT PATIENT STATED SHE IS SCARED TO TAKE MEDICATION IT MAKES HER DIZZY. SURGEON PAGED TO NOTIFY. NEW ORDER IN PLACE FOR PO PRN. Addendum: 11/30/19 at 1935 by Angela Mosley RN MD STATING OK TO DOWNGRADE IF HOSPITALIST FEELS APPROPRIATE.
[2019-11-30] MEDS ORDERED: ENOXAPARIN SOD 40 MG/0.4 ML SYRINGE SC ONE (16:15)
[2019-11-30] MEDS ORDERED: HYDROmorphone HCL 2 MG/ML VL IV PRN (16:15)
[2019-11-30] MEDS ORDERED: FUROSEMIDE 20 MG/2 ML VIAL IV ONE (16:15)
--- NOTE | 2019-11-30 16:20 | NUR ---
AT BEDSIDE DR. MCGEE UPDATED ON PATIENTS STATUS. AWARE OF URINE OUTPUT. NEW ORDERS IN PLACE. PATIENT TO BE DOWNGRADED TO TELE. CHARGE NURSE AWARE.
--- NOTE | 2019-11-30 16:21 | NUR ---
Family updated on pt status Family of CHARANMARCELLA updated on patient's status and condition. All questions and concerns addressed. Son verbalized understanding.
--- NOTE | 2019-11-30 18:28 | NUR ---
Respiratory note: AT BEDSIDE FOR MED AARON MEJIA.
[2019-11-30] MEDS ORDERED: D5W/SOD CHLO 0.9% 1,000 ML IV ONE (19:15)
--- NOTE | 2019-11-30 19:30 | NUR ---
OPEN NOTES PATIENT MORE AWAKE AND ABLE TO TALK BETTER. MOVING ALL LIMBS WITH BETTER STRENGTH THAN YESTERDAY NIGHT. ABDOMINAL BINDER IN PLACED. ABDOMINAL INCISIONS - DRESSING DRY AND INTACT. FULL ASSESSMENT DONE- REFER INTERVENTIONS
--- NOTE | 2019-11-30 20:10 | NUR ---
Incentive spirometry done 750mls encouraged patient to do it when awake
--- NOTE | 2019-11-30 20:15 | NUR ---
Family updated on pt status Daughter of MARCELLA FARRAR called, correct password given. Updated Shanell on patient's status and condition.Informed of patient is for transfer and new room #. All questions and concerns addressed. verbalized understanding.
[2019-11-30] MEDS: HYDROcodone-ACET 5/325MG TAB PO PRN (21:02)
--- NOTE | 2019-11-30 21:20 | NUR ---
REPORT REPORT GIVEN TO SHEELA RENDON
--- NOTE | 2019-11-30 21:43 | NUR ---
ICU patient trans to TELEMETRY floor MARCELLA FARRAR transferred to telemetry floor room 295B by bed on tele monitor and portable 02. All patient medications and personal belongings transferred with patient to receiving floor. Patient care transferred to SHEELA Maravilla. NOTE: Informed SHEELA Maravilla that patient's phone is inside the box with the workforce management manager and get it out once patient reaches the unit so that family can call her.
--- NOTE | 2019-11-30 21:50 | NUR ---
CALLED FAMILY TALKED TO PATIENT'S DAUGHTER GAYLE TO INFORM THAT PATIENT HAS BEEN TRANSFERRED OUT TO THE FLOOR VERBALIZED UNDERSTANDING
[2019-12-01] MEDS: MEROPENEM 1GM IVPB 100 ML IV SCH ×3 (00:50→17:04)
[2019-12-01] MEDS: ALBUTEROL SULF 2.5 MG/0.5ML(0.5%) NEB SOLN NEB SCH ×4 (01:28→18:03)
[2019-12-01 02:00] VITALS: BP 129/64
--- NOTE | 2019-12-01 03:18 | NUR ---
SHANE DRAIN OUTPUT: SHANE 1 50ml SHANE 2 50ml SHANE 3 0ML
[2019-12-01 05:00] VITALS: BP 123/74
[2019-12-01] MEDS: metroNIDAZOLE 500MG/100ML 100 ML IV SCH ×3 (05:32→22:45)
[2019-12-01 05:58] LABS: Hemoglobin 9.7 g/dL (12.2-16.2); Mean Corpuscular Hemoglobin 30.9 pg (28.0-32.0); Mean Corpuscular Hgb Conc. 33.4 g/dL (32.0-36.0); Mean Corpuscular Volume 92.5 fL (80.0-100.0); Platelet Count (auto) 237 10^3/uL (140-450); Red Blood Cells 3.13 10^6/uL (4.0-5.20); Red Cell Distribution Width 14.9 % (11.8-14.3); White Blood Cell 7.8 10^3/uL (4.4-10.8)
[2019-12-01 06:09] LABS: Band Neutrophils % (manual) 0; Basophils % (manual) 0 (0.0-2.0); Blast Cells 0; Myelocytes % 0; Promyelocytes % 0; Reactive Lymphocytes 0
[2019-12-01 06:15] LABS: Albumin 1.8 g/dL (3.4-5.0); Calcium 7.5 mg/dL (8.5-10.1); Potassium 4.1 mmol/L (3.5-5.1)
[2019-12-01 06:19] LABS: BUN/Creatinine Ratio 43.9; Bilirubin, Total 0.9 mg/dL (0.2-1.0); Total Protein 5.2 g/dL (6.4-8.2)
[2019-12-01 06:40] LABS: Eosinophils % (manual) 2 (0-7); Lymphocytes % (manual) 20 (10.0-50.0); Metamyelocytes % 2; Monocytes % (manual) 4 (0-12)
--- NOTE | 2019-12-01 08:00 | NUR ---
OPENING SHIFT NOTE ASSUMED CARE OF PATIENT AWAKE AND ALERT. NO S/S OF DISTRESS NOTED. MIDLINE ABDOMINAL DRESSING IS CLEAN, DRY, AND INTACT AND ABDOMINAL BINDER IS IN PLACE. PATIENT UPDATED ON POC FOR THE DAY AND ALL QUESTIONS ANSWERED. BED IS IN LOWEST, LOCKED POSITION WITH SIDE RAILS UP X2 AND CALL LIGHT WITHIN REACH. WILL CONTINUE TO MONITOR Q1H AND PRN.
[2019-12-01 09:00] VITALS: BP 118/78
[2019-12-01] MEDS ORDERED: ENOXAPARIN SOD 100 MG/1 ML SYRINGE SC SCH (10:00)
--- NOTE | 2019-12-01 10:04 | NUR ---
PHYSICAL THERAPY PATIENT REFUSING PT AT THIS TIME. BENEFITS OF PT EXPLAINED TO PATIENT AND SHE CONTINUES TO REFUSE. STATES SHE WILL TRY LATER.
[2019-12-01] MEDS: FLUCONAZOLE 200MG/100ML 100 ML IV SCH ×2 (10:05→11:15)
[2019-12-01] MEDS: FUROSEMIDE 20 MG/2 ML VIAL IV SCH (10:06)
[2019-12-01] MEDS: PANTOPRAZOLE 40 MG/10 ML VIAL INJ IV SCH (10:06)
[2019-12-01] MEDS: HYDROCORTISONE SOD SUCC 100 MG/2ML INJ VIAL IV SCH (10:07)
[2019-12-01] MEDS: LINEZOLID 600MG/300ML 300 ML IV SCH ×2 (10:07→22:46)
[2019-12-01] MEDS: SODIUM CHLOR 0.9% PF (SALINE LOCK) 10ML VIAL/SYR IV SCH ×2 (10:08→22:46)
[2019-12-01] MEDS: ENOXAPARIN SOD 40 MG/0.4 ML SYRINGE SC SCH (10:08)
[2019-12-01 13:00] VITALS: BP 110/76
--- NOTE | 2019-12-01 15:28 | NUR ---
Nutrition Follow-up Wt.: 123.0 kg Pt`s extubated with PT by bedside. pt s/p lap eddie. pt continues to be NPO per RN and no new diet orders Est. Energy Needs ABW 86 [id number] kcal (17-20kcal/kg ABW), Est. Protein Needs: 86-94 gms/day (1.0-1.1 gms/kg Adj.BW). Labs: GLU 116 H, ALB 1.8 L, ALP 213 H, BUN 25 H GI: Pt has no BM reported per RN doc Skin: Jeff scale 17 mod risk incision at site of sx PES: 1) Altered nutrition related lab values r.t current chronic medical condition aeb hyperglycemia, severe hypoalb, hyperbil 2) decreased nutrient needs r.t adiposity aeb pt`s high BMI of 52.2 kgm2 3) Partially resolved: Impaired swallowing r/t current medical condition aeb pt`s intubated sedated with order of NPO Recommendations: 1) advance diet as medically feasible. 2) consider alternate nutrition support if pt continues to be NPO > 48 hrs. 3) refer to [employer] dietitian on DC. 4) continue current plan of care. 5) F/u high 2-3 days
[2019-12-01 16:52] VITALS: BP 110/76
--- NOTE | 2019-12-01 18:08 | NUR ---
Respiratory note: PT REFUSED CPT AT THIS TIME. PT TOLERATED MED NEB TX WELL, WILL ATTEMPT CPT AT NEXT SCHEDULED TX.
--- NOTE | 2019-12-01 18:25 | NUR ---
AT BEDSIDE DR MCGEE AT BEDSIDE ROUNDING ON PATIENT.
--- NOTE | 2019-12-01 18:32 | NUR ---
SHANE DRAINS DRAIN #1 LOCATED LOWER MEDIAL UMBILICUS: OUTPUT: 175ML SEROSANGUINEOUS DRAINAGE DRAIN #2 LOCATED LEFT UPPER QUADRANT: OUTPUT: 175ML GREENISH-BROWN DRAINAGE DRAIN #3 LOCATED RIGHT UPPER QUADRANT: OUTPUT: 3ML SEROUS DRAINAGE
[2019-12-01 22:00] VITALS: BP 131/93
[2019-12-01] MEDS: HYDROcodone-ACET 5/325MG TAB PO PRN (23:38)
[2019-12-02] MEDS: ALBUTEROL SULF 2.5 MG/0.5ML(0.5%) NEB SOLN NEB SCH ×4 (00:40→17:53)
--- NOTE | 2019-12-02 00:40 | NUR ---
Respiratory note: AT BEDSIDE FOR MED NEB TX, PT SLEEPING. NO RESPIRATORY DISTRESS NOTED. WILL CONTINUE TO MONITOR.
[2019-12-02] MEDS: MEROPENEM 1GM IVPB 100 ML IV SCH ×3 (00:46→17:20)
[2019-12-02 05:00] VITALS: BP 130/78
[2019-12-02] MEDS: metroNIDAZOLE 500MG/100ML 100 ML IV SCH ×2 (05:22→14:20)
[2019-12-02 06:34] LABS: Hematocrit 30.3 % (36.0-46.0); Hemoglobin 10.1 g/dL (12.2-16.2); Mean Corpuscular Hemoglobin 30.9 pg (28.0-32.0); Mean Corpuscular Hgb Conc. 33.2 g/dL (32.0-36.0); Mean Corpuscular Volume 93.1 fL (80.0-100.0); Platelet Count (auto) 241 10^3/uL (140-450); Red Blood Cells 3.25 10^6/uL (4.0-5.20); Red Cell Distribution Width 14.7 % (11.8-14.3); White Blood Cell 7.8 10^3/uL (4.4-10.8)
[2019-12-02 06:40] LABS: Band Neutrophils % (manual) 0; Basophils % (manual) 0 (0.0-2.0); Blast Cells 0; Eosinophils % (manual) 0 (0-7); Myelocytes % 0; Promyelocytes % 0
--- NOTE | 2019-12-02 06:47 | NUR ---
SHANE Drains 1 Addendum: 12/02/19 at 0649 by ALKA HESS RN DRAIN #1 LOCATED LOWER MEDIAL UMBILICUS: OUTPUT: 175ML SEROSANGUINEOUS FLUID DRAIN #2 LOCATED LEFT UPPER QUADRANT: OUTPUT: 100ML GREEN FLUID DRAIN #3 LOCATED RIGHT UPPER QUADRANT: OUTPUT: 0ML
[2019-12-02 06:58] LABS: Lymphocytes % (manual) 23 (10.0-50.0); Metamyelocytes % 1; Monocytes % (manual) 2 (0-12); Reactive Lymphocytes 1
[2019-12-02 07:01] LABS: Albumin 1.8 g/dL (3.4-5.0); Calcium 7.4 mg/dL (8.5-10.1)
[2019-12-02 07:04] LABS: BUN/Creatinine Ratio 44.7; Bilirubin, Total 0.9 mg/dL (0.2-1.0); Total Protein 5.2 g/dL (6.4-8.2)
--- NOTE | 2019-12-02 07:35 | NUR ---
Opening Shift Note Assumed care of patient, awake and alert and oriented x4. No S/S of distress/SOB or pain reported at this time, currently on 2l via NC. Midline incision dressing CDI, SHANE site x3 CDI, abdomen binder reapplied, pt tolerating well, HOB >30, Instructed on POC and to call for assist PRN, call light within reach, able to demonstrate how to call fro assist using call light will, bed alarm on, 2 side rails up and bed positioned low, PICC line to LEYD, site patent and benign, pt was able to assist with turning and skin pink, no open areas noted, applied barrier ointment, continue to monitor for changes Q1hr and PRN.
[2019-12-02 08:00] VITALS: BP 141/80
[2019-12-02 09:00] VITALS: BP 141/80
--- NOTE | 2019-12-02 09:10 | NUR ---
PAGED/DR SAVANNA CORRALES WAS PAGED REGARDING, BLOODY/LIQUID STOOL, PT ASSISTED TO BEDPAN, NOTED WAS APPEARED HEMATURIA, BUT CAME FROM HER RECTUM, PT REPORTED HAVING HX OF HEMORRHOIDS, RECEIVED CALL BACK FROM DR CORRALES AND STATES TO ORDER GI CONSULT, NO ORDER RECEIVED FOR STOOL SOFTENER AT THIS TIME, STATES " HAVE GI SEE PT FIRST", CONT CARE
[2019-12-02] MEDS: PANTOPRAZOLE 40 MG/10 ML VIAL INJ IV SCH (09:32)
[2019-12-02] MEDS: FUROSEMIDE 20 MG/2 ML VIAL IV SCH (09:33)
[2019-12-02] MEDS: LINEZOLID 600MG/300ML 300 ML IV SCH (09:49)
[2019-12-02] MEDS: FLUCONAZOLE 200MG/100ML 100 ML IV SCH ×2 (09:49→15:31)
[2019-12-02] MEDS: SODIUM CHLOR 0.9% PF (SALINE LOCK) 10ML VIAL/SYR IV SCH ×2 (10:00→20:46)
[2019-12-02] MEDS: ENOXAPARIN SOD 40 MG/0.4 ML SYRINGE SC SCH (10:00)
--- NOTE | 2019-12-02 10:08 | NUR ---
AT BEDSIDE DR CORRALES AT BEDSIDE, EVALUATING PT, AT THIS TIME, PHYSICAL THERAPY ASSISTING PT TO CHAIR, CONT CARE
--- NOTE | 2019-12-02 10:30 | NUR ---
MEDICATION HELD LOVENOX HELD R/T NOTED BLOOD IN STOOL, DR MCGEE AWARE, AND AGREED TO CONT AND HOLD LOVENOX, CONT CARE
--- NOTE | 2019-12-02 12:28 | NUR ---
MD DR MCGEE AT BEDSIDE, DISCUSSING POC WITH PT, ASSISTED WITH TRANSLATION, NEW ORDERS ENTERED BY , [facility]
[2019-12-02 13:00] VITALS: BP 142/78
[2019-12-02 17:00] VITALS: BP 129/79
--- NOTE | 2019-12-02 17:58 | NUR ---
PT IS REFUSING CPT DUE TO POOR TOLERANCE.
--- NOTE | 2019-12-02 19:00 | NUR ---
SHANE OUTPUT #1 DRAIN LOCATED TO UMBILICUS TOTAL OUTPUT 150 SEROSANGUINEOUS #2 DRAIN LOCATED TO LUQ TOTAL OUTPUT 75ML OF DARK GREEN FLUID #3 DRAIN LOCATED TO RUQ TOTAL OUTPUT WAS 10ML OF SEROUS FLUID DRESSING CDI
[2019-12-02] MEDS: DOCUSATE SOD 100 MG CAP PO SCH (20:46)
[2019-12-02] MEDS: HYDROcodone-ACET 5/325MG TAB PO PRN (20:48)
--- NOTE | 2019-12-02 21:00 | NUR ---
Bowel Movement Pt had a smear sized BM. Bm was light brown in color with no sign of bleeding.
[2019-12-02 22:33] VITALS: BP 144/88
[2019-12-02] MEDS: PIPERACILLIN-TAZOB 3.375GM 100 ML IV SCH (23:53)
[2019-12-03] MEDS: ALBUTEROL SULF 2.5 MG/0.5ML(0.5%) NEB SOLN NEB SCH ×4 (00:06→18:51)
[2019-12-03 05:11] VITALS: BP 144/86
[2019-12-03 06:12] LABS: Basophils # (auto) 0 10 ^3/uL (0-0.2); Basophils % (auto) 0.3 % (0.0-2.0); Eosinophils # (auto) 0 10 ^3/uL (0-0.8); Eosinophils % (auto) 0.5 % (0.0-7.0); Hematocrit 31.6 % (36.0-46.0); Hemoglobin 10.4 g/dL (12.2-16.2); Lymphocytes # (auto) 1.5 10 ^3/uL (0.4-5.4); Lymphocytes % (auto) 17.1 % (10.0-50.0); Mean Corpuscular Hemoglobin 30.6 pg (28.0-32.0); Mean Corpuscular Volume 92.7 fL (80.0-100.0); Monocytes # (auto) 0.3 10 ^3/uL (0-1.3); Monocytes % (auto) 3.4 % (0.0-12.0); Neutrophils # (auto) 7.2 10 ^3/uL (1.6-8.6); Neutrophils % (auto) 78.7 % (37.0-80.0); Nucleated Red Blood Cells % 0.1 %; Platelet Count (auto) 260 10^3/uL (140-450); Red Blood Cells 3.41 10^6/uL (4.0-5.20); Red Cell Distribution Width 14.7 % (11.8-14.3); White Blood Cell 9.1 10^3/uL (4.4-10.8)
[2019-12-03] MEDS: PIPERACILLIN-TAZOB 3.375GM 100 ML IV SCH ×3 (06:14→17:41)
--- NOTE | 2019-12-03 06:56 | NUR ---
SHANE Drains DRAIN #1 LOCATED LOWER MEDIAL UMBILICUS: OUTPUT: 100ML SEROSANGUINEOUS FLUID DRAIN #2 LOCATED LEFT UPPER QUADRANT: OUTPUT: 75ML GREEN FLUID DRAIN #3 LOCATED RIGHT UPPER QUADRANT: OUTPUT: 0ML
--- NOTE | 2019-12-03 07:55 | NUR ---
Opening Shift Note Assumed care of patient, awake and alert. No S/S of distress/SOB or pain. Instructed on POC and to call for assist PRN, will continue to monitor for changes Q1hr and PRN.
--- NOTE | 2019-12-03 09:00 | NUR ---
Advance diet orders Patient refused breakfast. She only had some juice and water. Will follow up with lunch and advance if she tolerates same.
--- NOTE | 2019-12-03 09:05 | NUR ---
data entry specialist at bedside
[2019-12-03 09:16] VITALS: BP 152/85
[2019-12-03] MEDS: DOCUSATE SOD 100 MG CAP PO SCH ×2 (10:00→21:46)
[2019-12-03] MEDS: SODIUM CHLOR 0.9% PF (SALINE LOCK) 10ML VIAL/SYR IV SCH ×2 (10:34→21:46)
[2019-12-03] MEDS: ENOXAPARIN SOD 40 MG/0.4 ML SYRINGE SC SCH (10:34)
[2019-12-03] MEDS: FLUCONAZOLE 100 MG TAB PO SCH (10:34)
[2019-12-03] MEDS: HYDROcodone-ACET 5/325MG TAB PO PRN (10:42)
--- NOTE | 2019-12-03 11:30 | NUR ---
Patient sitting up in chair at bedside uncomplaining.
[2019-12-03 12:07] VITALS: BP 152/85
[2019-12-03 13:00] VITALS: BP 131/75
--- NOTE | 2019-12-03 14:36 | NUR ---
Nutrition Follow-up Wt.: 116.7 kg Pt`s extubated, pt s/p lap eddie. Pt diet is advanced to full liquid. Pt po is fair aeb 67% po intake per RN doc 12/01-12/02. Will continue to monitor diet advancement and po intake Est. Energy Needs ABW 86 [id number] kcal (17-20kcal/kg ABW), Est. Protein Needs: 86-94 gms/day (1.0-1.1 gms/kg Adj.BW). Labs: BUN 21H, Creat 0.47L, Alb 1.8L, Ca 7.4L GI: 1 BM 12/01 per RN doc Skin: Jeff scale 18 mod risk incision at site of sx PES: 1) Partically resolved: Altered nutrition related lab values r.t current chronic medical condition aeb hyperglycemia, severe hypoalb, hyperbil 2) decreased nutrient needs r.t adiposity aeb pt`s high BMI of 52.2 kgm2 3) Partially resolved: Impaired swallowing r/t current medical condition aeb pt`s intubated sedated with order of NPO Recommendations: 1) advance diet as medically feasible. 2) refer to [facility] dietitian on DC. 3) continue current plan of care. 4) F/u 3-5 days
[2019-12-03 16:55] VITALS: BP 138/65
[2019-12-03] MEDS: Ensure HIGH Protein Chocolate 8oz Bottle PO SCH (18:00)
--- NOTE | 2019-12-03 18:47 | NUR ---
SHANE Drains DRAIN #1 Located lower medial umbilicus - Output 100ml serosanguineous fluid DRAIN #2 Located left upper quadrant - output 75ml greenish looking fluid. DRAIN #3 Located right upper quadrant - output 1ml serosanguineous fluid.
--- NOTE | 2019-12-03 20:50 | NUR ---
1899. REPORT OBTAINED ON PATIENT. 1999. PATIENT SEEN. JUST FINISHING HER DINNER. SOFT DIET. ALERT AND ORIENTED. DENIES PAIN.DRAINAGE PROCEDURES NOTED. ALL 3 EMPTY. AFEBRILE. ABLE TO MOVE FREELY IN BED. ANTIBIOTIC INFUSING. MONITIORING CONTINUES.
[2019-12-03 22:00] VITALS: BP 151/87
[2019-12-04] MEDS: ALBUTEROL SULF 2.5 MG/0.5ML(0.5%) NEB SOLN NEB SCH ×5 (00:15→23:55)
--- NOTE | 2019-12-04 02:20 | NUR ---
PATIENT SLEEPING AT THIS TIME.
[2019-12-04] MEDS: HYDROcodone-ACET 5/325MG TAB PO PRN ×3 (03:53→23:26)
--- NOTE | 2019-12-04 04:19 | NUR ---
0400. PATIENT MEDICATED FOR ABDOMINAL PAIN. SHANE DRAINS EMPTIED. 1. 70ML PINK COLOR 2. 50ML GREENISH YELLOW. 3. 5 ML PINK.
[2019-12-04 05:00] VITALS: BP 150/86
[2019-12-04] MEDS: PIPERACILLIN-TAZOB 3.375GM 100 ML IV SCH ×4 (05:38→17:45)
--- NOTE | 2019-12-04 07:12 | NUR ---
OPENING SHIFT NOTE Assumed care of patient from leather case finisher RNRenny. Patient is alert and oriented x4, no signs of distress noted, patient denies pain. Patient was updated on the plan of care and verbalized understanding. She has a negro, draining clear yellow urine to gravity, bag hung below bladder level, no tubing loops or kinks noted. Patient has an abdominal binder in place, midline abdominal incision with dressing clean dry and intact patient has three SHANE drains, lower medial umbilicus, left upper quadrant, and right lower quadrant. Patient is receiving oxygen via nasal cannula at 2L/min with saturation 98%. Bed is locked, in the lowest position, side rail up x2 and call light is in reach. Patient was encouraged to call for assistance as needed. Addendum: 12/04/19 at 1045 by ANGELA AVILA RN wrong time
[2019-12-04] MEDS: Ensure HIGH Protein Chocolate 8oz Bottle PO SCH ×2 (08:08→12:04)
[2019-12-04 08:45] VITALS: BP 136/78
--- NOTE | 2019-12-04 09:30 | NUR ---
PHYSICAL THERAPY AT BEDSIDE
[2019-12-04] MEDS: FLUCONAZOLE 100 MG TAB PO SCH (10:11)
[2019-12-04] MEDS: SODIUM CHLOR 0.9% PF (SALINE LOCK) 10ML VIAL/SYR IV SCH ×2 (10:11→21:37)
[2019-12-04] MEDS: DOCUSATE SOD 100 MG CAP PO SCH ×2 (10:11→21:54)
[2019-12-04] MEDS: ENOXAPARIN SOD 40 MG/0.4 ML SYRINGE SC SCH (10:11)
--- NOTE | 2019-12-04 10:33 | NUR ---
OPENING SHIFT NOTE Assumed care of patient from clinical researcher RNRenny. Patient is alert and oriented x4, no signs of distress noted, patient denies pain. Patient was updated on the plan of care and verbalized understanding. She has a negro, draining clear yellow urine to gravity, bag hung below bladder level, no tubing loops or kinks noted. Patient has an abdominal binder in place, midline abdominal incision with dressing clean dry and intact patient has three SHANE drains, lower medial umbilicus, left upper quadrant, and right lower quadrant. Patient is receiving oxygen via nasal cannula at 2L/min with saturation 98%. Bed is locked, in the lowest position, side rail up x2 and call light is in reach. Patient was encouraged to call for assistance as needed. Addendum: 12/04/19 at 1046 by ANGELA AVILA RN wrong time
[2019-12-04 13:25] VITALS: BP 143/79
[2019-12-04 16:36] VITALS: BP 144/84
--- NOTE | 2019-12-04 17:38 | NUR ---
SHANE Drains DRAIN #1 Located lower medial umbilicus - Output 100ml serosanguineous fluid DRAIN #2 Located left upper quadrant - output 100ml greenish looking fluid. DRAIN #3 Located right upper quadrant - output 25ml serosanguineous fluid.
[2019-12-04] MEDS: Glucerna Carbsteady SHAKE Vanilla 8oz PO SCH ×2 (18:00→21:54)
--- NOTE | 2019-12-04 19:29 | NUR ---
1899. REPORT RECEIVED ON PATIENT FROM ANGELA COKER. 1914. PATIENT SEEN IN HER ROOM. ON BED IN SUPINE POSITION AND HEAD UP 45 DEGREES. PATIENT IA ALERT AND ORIENTED X 4. DENIES PAIN. WAS OUT OF BED TO CHAIR FOR 4 HOURS DURING THE DAY SHIFT. PATIENT IS ON O2 2L BY NASAL CANULA. [address] EMPTY AT THIS TIME. KING CATHETER IN PLACE AND SECURED. BAG EMPTY AT THIS TIME. ABDOMEN ROUND. NONE TENDER ON PALPATION. SURGICAL DRESSING CLEAR AND DRY.SKIN IS INTACT.
--- NOTE | 2019-12-04 19:35 | NUR ---
IV SITE RIGHT UPPER ARM. TRIPLE LUMEN PICC LINE. ALL 3 LIMBS FLUSHING WELL. DRESSING AT SITE CLEAR AND DRY.NO FLUIDS INFUSING.
[2019-12-04 21:59] VITALS: BP 150/76
--- NOTE | 2019-12-04 22:07 | NUR ---
PATIENT RESTING WELL. NO PAIN COMPLAINT.
--- NOTE | 2019-12-04 23:07 | NUR ---
PATIENT IS STABLE AND SLEEPING AT THIS TIME. PATIENT HANDED OVER TO [facility]MA. COKER.
--- NOTE | 2019-12-04 23:20 | NUR ---
PAIN ASSESSMENT The patient reports having 7/10 abdominal pain and requested pain medication. Will treat with PRN Gridley and will reassess the patient's pain.
--- NOTE | 2019-12-05 00:25 | NUR ---
PAIN REASSESSMENT The patient's pain has improved to 2/10. The patient is resting comfortably in bed.
[2019-12-05 05:00] VITALS: BP 124/76
[2019-12-05] MEDS: ALBUTEROL SULF 2.5 MG/0.5ML(0.5%) NEB SOLN NEB SCH ×4 (05:52→23:49)
[2019-12-05] MEDS: PIPERACILLIN-TAZOB 3.375GM 100 ML IV SCH ×4 (06:00→18:02)
[2019-12-05] MEDS: Glucerna Carbsteady SHAKE Vanilla 8oz PO SCH ×4 (06:00→22:00)
[2019-12-05 06:09] LABS: Basophils # (auto) 0 10 ^3/uL (0-0.2); Basophils % (auto) 0.5 % (0.0-2.0); Eosinophils # (auto) 0.1 10 ^3/uL (0-0.8); Hematocrit 26.5 % (36.0-46.0); Hemoglobin 8.9 g/dL (12.2-16.2); Lymphocytes # (auto) 1.5 10 ^3/uL (0.4-5.4); Lymphocytes % (auto) 19.2 % (10.0-50.0); Mean Corpuscular Hgb Conc. 33.7 g/dL (32.0-36.0); Monocytes # (auto) 0.4 10 ^3/uL (0-1.3); Monocytes % (auto) 5.1 % (0.0-12.0); Neutrophils # (auto) 5.6 10 ^3/uL (1.6-8.6); Neutrophils % (auto) 74.2 % (37.0-80.0); Nucleated Red Blood Cells % 0.1 %; Platelet Count (auto) 220 10^3/uL (140-450); Red Blood Cells 2.87 10^6/uL (4.0-5.20); Red Cell Distribution Width 14.4 % (11.8-14.3); White Blood Cell 7.6 10^3/uL (4.4-10.8)
[2019-12-05] MEDS: HYDROcodone-ACET 5/325MG TAB PO PRN (06:25)
--- NOTE | 2019-12-05 06:25 | NUR ---
PAIN ASSESSMENT The patient complains of 6/10 abdominal pain and requested pain medication. Will treat with PRN Sullivan for pain.
[2019-12-05 06:26] LABS: Calcium 7.4 mg/dL (8.5-10.1); Potassium 3.7 mmol/L (3.5-5.1)
--- NOTE | 2019-12-05 06:34 | NUR ---
SHANE Drain outputs DRAIN #1 Located lower medial umbilicus - Output 50 ml serosanguineous fluid. DRAIN #2 Located left upper quadrant - output 50 ml dark greenish fluid. DRAIN #3 Located right upper quadrant - output 5 ml serosanguineous fluid.
[2019-12-05 06:36] LABS: BUN/Creatinine Ratio 22.9
--- NOTE | 2019-12-05 07:30 | NUR ---
Opening Shift Note RECEIVED REPORT FROM NOC RN. Assumed care of patient, awake and alert. PATIENT ON OXYGEN AT 2 LPM VIA NASAL CANNULA WITH no S/S of distress/SOB or pain. BED IN LOWEST, LOCKED POSITION WITH SIDERAILS UP x2 AND CALL LIGHT WITHIN REACH. Instructed on POC and to call for assist PRN, will continue to monitor for changes Q1hr and PRN.
[2019-12-05 08:51] VITALS: BP 127/72
[2019-12-05] MEDS: DOCUSATE SOD 100 MG CAP PO SCH ×2 (09:58→22:00)
[2019-12-05] MEDS: SODIUM CHLOR 0.9% PF (SALINE LOCK) 10ML VIAL/SYR IV SCH ×2 (09:58→22:00)
[2019-12-05] MEDS: FLUCONAZOLE 100 MG TAB PO SCH (09:58)
[2019-12-05] MEDS: ENOXAPARIN SOD 40 MG/0.4 ML SYRINGE SC SCH (09:59)
--- NOTE | 2019-12-05 12:29 | NUR ---
DR. DOE AT BEDSIDE.
[2019-12-05 12:33] VITALS: BP 128/91
[2019-12-05 16:47] VITALS: BP 135/80
--- NOTE | 2019-12-05 17:35 | NUR ---
SHANE Drain outputs DRAIN #1 Located lower medial umbilicus - Output 100 ml serosanguineous fluid. DRAIN #2 Located left upper quadrant - output 25 ml dark greenish fluid. DRAIN #3 Located right upper quadrant - output 25 ml serosanguineous fluid.
[2019-12-05 22:20] VITALS: BP 117/60
[2019-12-05 23:09] VITALS: BP 141/91
[2019-12-06] VITALS (7 sets, daily range): BP systolic 121–143; BP diastolic 78–85
[2019-12-06] MEDS: HYDROcodone-ACET 5/325MG TAB PO PRN ×2 (02:30→09:24)
--- NOTE | 2019-12-06 05:55 | NUR ---
BLOOD IN STOOL Small blood clots have been observed in the patient' stool. Will page and notify hospitalist.
[2019-12-06] MEDS: PIPERACILLIN-TAZOB 3.375GM 100 ML IV SCH ×4 (06:00→18:08)
[2019-12-06] MEDS: Glucerna Carbsteady SHAKE Vanilla 8oz PO SCH ×4 (06:00→22:38)
[2019-12-06 06:10] LABS: Basophils # (auto) 0 10 ^3/uL (0-0.2); Basophils % (auto) 0.6 % (0.0-2.0); Eosinophils # (auto) 0.1 10 ^3/uL (0-0.8); Eosinophils % (auto) 1.2 % (0.0-7.0); Hematocrit 25.4 % (36.0-46.0); Hemoglobin 8.7 g/dL (12.2-16.2); Lymphocytes # (auto) 1.5 10 ^3/uL (0.4-5.4); Lymphocytes % (auto) 21.3 % (10.0-50.0); Mean Corpuscular Hemoglobin 31.4 pg (28.0-32.0); Mean Corpuscular Hgb Conc. 34.1 g/dL (32.0-36.0); Mean Corpuscular Volume 91.9 fL (80.0-100.0); Monocytes # (auto) 0.6 10 ^3/uL (0-1.3); Monocytes % (auto) 8.6 % (0.0-12.0); Neutrophils # (auto) 4.7 10 ^3/uL (1.6-8.6); Neutrophils % (auto) 68.3 % (37.0-80.0); Nucleated Red Blood Cells % 0.2 %; Platelet Count (auto) 210 10^3/uL (140-450); Red Blood Cells 2.77 10^6/uL (4.0-5.20); Red Cell Distribution Width 14.3 % (11.8-14.3); White Blood Cell 6.9 10^3/uL (4.4-10.8)
[2019-12-06 06:29] LABS: Calcium 7.5 mg/dL (8.5-10.1); Potassium 4.3 mmol/L (3.5-5.1)
[2019-12-06] MEDS: ALBUTEROL SULF 2.5 MG/0.5ML(0.5%) NEB SOLN NEB SCH ×3 (06:32→19:15)
[2019-12-06 06:34] LABS: BUN/Creatinine Ratio 16.7
--- NOTE | 2019-12-06 06:42 | NUR ---
HOSPITALIST PAGED SRINIVASAN Choi has been notified about the patient's small amount of blood in stool. Order received for a stool occult.
--- NOTE | 2019-12-06 07:01 | NUR ---
SHANE Drain outputs DRAIN #1 Located lower medial umbilicus - Output 95 ml serosanguineous fluid. DRAIN #2 Located left upper quadrant - output 5 ml dark greenish fluid. DRAIN #3 Located right upper quadrant - output 5 ml serosanguineous fluid.
--- NOTE | 2019-12-06 07:12 | NUR ---
Opening Shift Note: Assumed care of patient, awake and alert. No S/S of distress/SOB or pain. Bed in lowest locked position, side rails up x 2, call light within reach. Patient instructed on POC and to call for assist PRN, will continue to monitor for changes Q1hr and PRN.
[2019-12-06] MEDS: ENOXAPARIN SOD 40 MG/0.4 ML SYRINGE SC SCH (09:24)
[2019-12-06] MEDS: DOCUSATE SOD 100 MG CAP PO SCH ×2 (09:24→22:37)
[2019-12-06] MEDS: FLUCONAZOLE 100 MG TAB PO SCH (09:24)
[2019-12-06] MEDS: SODIUM CHLOR 0.9% PF (SALINE LOCK) 10ML VIAL/SYR IV SCH ×2 (10:00→22:37)
[2019-12-06 18:05] LABS: Hematocrit 28.3 % (36.0-46.0); Hemoglobin 9.5 g/dL (12.2-16.2)
--- NOTE | 2019-12-06 18:56 | NUR ---
CLOSING NOTE: Patient resting in bed. No S/S of pain, distress or SOB. Care endorsed.
--- NOTE | 2019-12-06 19:22 | NUR ---
Opening Shift Note: Assumed care of patient. Patient is awake, alert, and oriented X 4. No S/S of respiratory distress/SOB or pain. Respirations regular and non-labored. Bed in lowest position, brakes are locked, side rails up x 2, call light within reach. Bed alarm activated for patient safety. Solomon is patent and on bed frame. 3 PJ drains are functional. PICC line is asymptomatic and intact. Tele box matches the monitor. Electrodes are placed correctly. Patient was instructed on POC and to call for assist PRN. Will continue to monitor for changes Q1hr and PRN.
--- NOTE | 2019-12-06 23:02 | NUR ---
SHANE Drain Output SHANE Drain #1 Located lower medial umbilicus - Output 85 ml serosanguineous fluid. The other SHANE's had no measurable outputs.
[2019-12-07] VITALS (7 sets, daily range): BP systolic 117–146; BP diastolic 74–93
[2019-12-07] MEDS: HYDROcodone-ACET 5/325MG TAB PO PRN ×2 (00:14→10:37)
[2019-12-07] MEDS: PIPERACILLIN-TAZOB 3.375GM 100 ML IV SCH ×4 (00:15→17:39)
[2019-12-07] MEDS: ALBUTEROL SULF 2.5 MG/0.5ML(0.5%) NEB SOLN NEB SCH ×5 (00:25→19:15)
[2019-12-07] MEDS: Glucerna Carbsteady SHAKE Vanilla 8oz PO SCH ×4 (06:15→22:17)
[2019-12-07 06:21] LABS: Basophils # (auto) 0 10 ^3/uL (0-0.2); Basophils % (auto) 0.6 % (0.0-2.0); Eosinophils # (auto) 0.1 10 ^3/uL (0-0.8); Eosinophils % (auto) 1.3 % (0.0-7.0); Hematocrit 25.8 % (36.0-46.0); Hemoglobin 8.5 g/dL (12.2-16.2); Lymphocytes # (auto) 1.4 10 ^3/uL (0.4-5.4); Lymphocytes % (auto) 21.1 % (10.0-50.0); Mean Corpuscular Hemoglobin 30.6 pg (28.0-32.0); Mean Corpuscular Volume 92.7 fL (80.0-100.0); Monocytes # (auto) 0.7 10 ^3/uL (0-1.3); Monocytes % (auto) 10.2 % (0.0-12.0); Neutrophils # (auto) 4.4 10 ^3/uL (1.6-8.6); Neutrophils % (auto) 66.8 % (37.0-80.0); Platelet Count (auto) 229 10^3/uL (140-450); Red Blood Cells 2.78 10^6/uL (4.0-5.20); Red Cell Distribution Width 14.7 % (11.8-14.3); White Blood Cell 6.6 10^3/uL (4.4-10.8)
[2019-12-07 06:38] LABS: Calcium 7.5 mg/dL (8.5-10.1); Potassium 4.3 mmol/L (3.5-5.1)
[2019-12-07 06:40] LABS: BUN/Creatinine Ratio 15.4
--- NOTE | 2019-12-07 07:30 | NUR ---
Opening Shift Note Report received and assumed care of patient,awake,aler oriented,No S/S of distress/SOB,no c/o pain. Bed is locked in lowest position with the call light within reach. Instructed on POC and to call for assist PRN, will continue to monitor for changes Q1hr and VT
--- NOTE | 2019-12-07 09:59 | NUR ---
Nutrition Follow-up Wt.: 91.4 kg Pt`s extubated, pt s/p lap eddie. Pt diet is advanced to Soft Diet. Pt po is adequate aeb 75% po intake per RN doc 12/04-. Will continue to monitor diet advancement and po intake Est. Energy Needs ABW 86 [id number] kcal (17-20kcal/kg ABW), Est. Protein Needs: 86-94 gms/day (1.0-1.1 gms/kg Adj.BW). Labs: BUN 6L, Creat 0.39L, Ca 7.5L, Alb 1.8L GI: 4 BM 12/06 per RN doc Skin: Jeff scale 17 mod risk incision at site of sx PES: 1) Partically resolved: Altered nutrition related lab values r.t current chronic medical condition aeb hyperglycemia, severe hypoalb, hyperbil 2) decreased nutrient needs r.t adiposity aeb pt`s high BMI of 52.2 kgm2 3) Partially resolved: Impaired swallowing r/t current medical condition aeb pt`s intubated sedated with order of NPO Recommendations: 1) advance diet as medically feasible. 2) refer to [facility] dietitian on DC. 3) continue current plan of care. 4) F/u 3-5 days
[2019-12-07] MEDS ORDERED: LACTULOSE 20Gm/30ML SOLN PO PRN (10:30)
[2019-12-07] MEDS: ENOXAPARIN SOD 40 MG/0.4 ML SYRINGE SC SCH (10:36)
[2019-12-07] MEDS: FLUCONAZOLE 100 MG TAB PO SCH (10:37)
[2019-12-07] MEDS: DOCUSATE SOD 100 MG CAP PO SCH ×2 (10:37→22:16)
[2019-12-07] MEDS: SODIUM CHLOR 0.9% PF (SALINE LOCK) 10ML VIAL/SYR IV SCH ×2 (10:39→22:16)
--- NOTE | 2019-12-07 11:00 | NUR ---
AMBULATED WITH P.T. IN HALLWAY USING WALKER,GAIT STEADY,BACK TO ROOM REMAINS UP IN CHAIR,TOLERATING ACTIVITY
--- NOTE | 2019-12-07 16:05 | NUR ---
MD VISIT HERE TO SEE AND EXAMINED PATIENT,RECEIVED WRITTEN ORDERS
--- NOTE | 2019-12-07 17:08 | NUR ---
BLADDER TRAINING STARTED,KING CATHETER CLAMPED PATIENT INSTRUCTED TO NOTIFY RN IF FEELING URGED TO VOID OR BLADDER FEELS FULL
--- NOTE | 2019-12-07 19:15 | NUR ---
STATUS UNCHANGED,NO DISTRESS NO DISCOMFORT,REPORT GIVEN TO INCOMING NOC SHIFT RN
--- NOTE | 2019-12-07 19:20 | NUR ---
Opening Shift Note: Assumed care of patient. Patient is awake, alert, and oriented X 4. No S/S of respiratory distress/SOB or pain. Respirations regular and non-labored. Bed in lowest position, brakes are locked, side rails up x 2, call light within reach. Bed alarm activated for patient safety. Solomon is patent and on bed frame. 3 PJ drains are functional. PICC line is asymptomatic and patent. Tele box matches the monitor. Electrodes are placed correctly. Patient was instructed on POC and to call for assist PRN. Will continue to monitor for changes Q1hr and PRN.
--- NOTE | 2019-12-07 21:30 | NUR ---
Bladder training Bladder training was performed three times. Solomon tube was kinked to prevent urine elimination. Patient felt urgency to urinate all three times. Patient hold in her bladder and then urinated 200-250 ml of urine.
--- NOTE | 2019-12-07 22:50 | NUR ---
Dressing changed Saturated with drainage dressing changed around SHANE #1 was removed. New Optifoam applied. patient tolerated well.
[2019-12-08] MEDS: PIPERACILLIN-TAZOB 3.375GM 100 ML IV SCH ×2 (00:04→06:24)
[2019-12-08] MEDS: ALBUTEROL SULF 2.5 MG/0.5ML(0.5%) NEB SOLN NEB SCH ×4 (00:32→18:49)
[2019-12-08 05:00] VITALS: BP 144/76
[2019-12-08 05:13] LABS: Eosinophils # (auto) 0.1 10 ^3/uL (0-0.8); Hemoglobin 8.4 g/dL (12.2-16.2); Lymphocytes # (auto) 1.4 10 ^3/uL (0.4-5.4); Monocytes # (auto) 0.6 10 ^3/uL (0-1.3); Neutrophils # (auto) 3.7 10 ^3/uL (1.6-8.6)
[2019-12-08 05:16] LABS: Basophils # (auto) 0.1 10 ^3/uL (0-0.2); Basophils % (auto) 0.9 % (0.0-2.0); Eosinophils % (auto) 1.7 % (0.0-7.0); Hematocrit 24.8 % (36.0-46.0); Lymphocytes % (auto) 23.5 % (10.0-50.0); Mean Corpuscular Hemoglobin 31.5 pg (28.0-32.0); Mean Corpuscular Volume 92.7 fL (80.0-100.0); Monocytes % (auto) 10.1 % (0.0-12.0); Neutrophils % (auto) 63.8 % (37.0-80.0); Nucleated Red Blood Cells % 0.1 %; Platelet Count (auto) 262 10^3/uL (140-450); Red Blood Cells 2.68 10^6/uL (4.0-5.20); Red Cell Distribution Width 14.7 % (11.8-14.3); White Blood Cell 5.9 10^3/uL (4.4-10.8)
[2019-12-08 05:31] LABS: BUN/Creatinine Ratio 11.4; Calcium 7.8 mg/dL (8.5-10.1); Potassium 3.9 mmol/L (3.5-5.1)
[2019-12-08] MEDS: Glucerna Carbsteady SHAKE Vanilla 8oz PO SCH ×4 (06:24→21:54)
--- NOTE | 2019-12-08 07:30 | NUR ---
Opening Shift Note: Report received and assumed care of patient. Patient awake, alert, and oriented X 4. No S/S of respiratory distress noted. Respirations regular and non-labored.Patient on 2 liters NC, abdominal dressing clean and dry,abdominal binder in place,SCD in place, Bed in lowest locked position,call light within reach. Patient instructed on POC and to call for assistance as needed. Will continue to monitor for changes Q1hr and PRN.
[2019-12-08 08:37] VITALS: BP 142/83
--- NOTE | 2019-12-08 09:15 | NUR ---
ambulated in hallway assisted by P.T. with walker,then back to room ,remains up in chair
[2019-12-08] MEDS: DOCUSATE SOD 100 MG CAP PO SCH ×2 (10:11→21:53)
[2019-12-08] MEDS: FLUCONAZOLE 100 MG TAB PO SCH (10:11)
[2019-12-08] MEDS: SODIUM CHLOR 0.9% PF (SALINE LOCK) 10ML VIAL/SYR IV SCH ×2 (10:11→21:47)
[2019-12-08] MEDS: ENOXAPARIN SOD 40 MG/0.4 ML SYRINGE SC SCH (10:11)
--- NOTE | 2019-12-08 10:15 | NUR ---
Solomon catheter discontinued
--- NOTE | 2019-12-08 11:00 | NUR ---
to BSC,voiding freely and had a bowel movement
[2019-12-08 12:41] VITALS: BP 129/73
[2019-12-08] MEDS ORDERED: AMLO5TAB15 PO (12:56)
[2019-12-08] MEDS ORDERED: FAM20T PO (12:56)
[2019-12-08] MEDS ORDERED: ALBUAER3 IN (12:56)
--- NOTE | 2019-12-08 13:42 | NUR ---
9819 12/08/19 I contacted [employer] Director Distribution Carrington to request that authorization be provided for patient's continued stay. Unable to reach case management manager after 2 phone call attempts. Provided message stating the above on voicemail at [phone]. I also left message regarding patient needing home oxygen-faxed home oxygen order/ABG to [employer]-asking for list of vendors and authorization.
--- NOTE | 2019-12-08 15:13 | NUR ---
DR. MADRIGAL MADE AWARE PATIENT HAD EPISODE OF BIGEMINAL PVC'S THIS A.M.PATIENT WAS ASYMPTOMATIC
[2019-12-08] MEDS ORDERED: ATENOLOL 25 MG TAB PO ONE (15:15)
--- NOTE | 2019-12-08 15:38 | NUR ---
MD INFORMED ' DR. MADRIGAL NOTIFIED OF PATIENT REQUEST FOR BEDSIDE COMMODE FOR HOME USE,RECEIVED ORDER
--- NOTE | 2019-12-08 15:48 | NUR ---
I spoke with Carrington at [facility], he said patient's home oxygen will be delivered by [employer]-portable to come to hospital, concentrator to be delivered to son's house [address] [place] [address]-cb [facility]'s phone number [phone]-I provided this information to Carrington at [facility]-I also let him know that there is an order for BSC-faxed it to him as requested-it will be delivered by [employer] as well.
--- NOTE | 2019-12-08 16:50 | NUR ---
TEMPERATURE 100.8,PAGED PRESTON NURSE PRACTITIONER
--- NOTE | 2019-12-08 16:53 | NUR ---
[facility] NARES SENT PER DISCHARGE PROTOCOL
[2019-12-08 17:07] VITALS: BP 125/76
--- NOTE | 2019-12-08 17:30 | NUR ---
CONSUELO SALINAS NURSE PRACTITIONER CALLED INFORMED OF PATIENT TEMPERATURE OF 100.8, REVIEWED LAB WORKS ([facility]) STATED OK TO DISCHARGE PATIENT BUT INSTRUCT PATIENT IF FEVER PERSIST TO RETURN TO E.R.
--- NOTE | 2019-12-08 18:11 | NUR ---
STILL AWAITING FOR HOME O2/PORTABLE
--- NOTE | 2019-12-08 19:20 | NUR ---
REPORT GIVEN TO INCOMING NOC SHIFT RN,STILL AWAITING FOR HOME O2 TO BE DELIVERED
--- NOTE | 2019-12-08 19:30 | NUR ---
Opening Shift Note Assumed care of patient, awake and alert oriented x4. No S/S of distress/SOB or pain noted. Three SHANE drains are connected to the patient, all three are patents and draining. Dressings are dry and intact. Bed is in lowest locked position with bed rails up x2 and call light is within reach of the patient. Instructed on POC and to call for assist PRN.
--- NOTE | 2019-12-08 20:30 | NUR ---
[facility] called: Latonia from [facility] called regarding patients portable oxygen for home oxygen. Latonia made this Rn aware that she is to call [facility] director of curriculum and instruction line, who will be providing portable oxygen, to see if they will be delivering the oxygen tonight or in the AM. Latonia is to call back to verify. Patient has not yet received oxygen portable yet. Waiting for call back.
[2019-12-08 22:00] VITALS: BP 119/73
--- NOTE | 2019-12-08 22:25 | NUR ---
[facility] group called back: Latonia from [facility] called back in regards to patients portable oxygen. Stated that oxygen shipment may not be available till the AM. Patient still has yet to receive portable oxygen. Patient to be discharged in the AM until oxygen portable arrives.
[2019-12-09] MEDS: ALBUTEROL SULF 2.5 MG/0.5ML(0.5%) NEB SOLN NEB SCH ×2 (00:27→09:06)
[2019-12-09 05:00] VITALS: BP 124/69
[2019-12-09] MEDS: HYDROcodone-ACET 5/325MG TAB PO PRN (05:32)
[2019-12-09] MEDS: Glucerna Carbsteady SHAKE Vanilla 8oz PO SCH ×2 (05:39→12:50)
[2019-12-09] MEDS ORDERED: SODIUM CHLORIDE 0.9 % NEB SOLN 3ML NEB ONE (05:45)
--- NOTE | 2019-12-09 05:54 | NUR ---
SHANE Drain Output SHANE Drain #1 Output 90 ml orange fluid. SHANE Drain #2 Output 5 ml of green fluid. SHANE Drain #2 Output 10 ml of clear orange fluid.
--- NOTE | 2019-12-09 07:45 | NUR ---
Opening Note Received report from overnight stocker RN. Patient is resting in bed, easy to wake by calling name. Patient is on 2L NC, respirations even and unlabored. Patient has [address], midline incision clean dry and intact. Patient denies pain at this time. Reviewed plan of care with patient, patient verbalized understanding. Bed in low and locked position, call light within reach. Will continue to monitor Q1 hour and PRN.
[2019-12-09 08:16] VITALS: BP 126/78
[2019-12-09] MEDS: ENOXAPARIN SOD 40 MG/0.4 ML SYRINGE SC SCH (09:56)
[2019-12-09] MEDS: DOCUSATE SOD 100 MG CAP PO SCH (09:58)
[2019-12-09] MEDS ORDERED: FLUCONAZOLE 100 MG TAB PO SCH (10:00)
[2019-12-09 10:21] VITALS: BP 135/79
[2019-12-09 10:56] VITALS: BP 126/78
[2019-12-09] MEDS: SODIUM CHLOR 0.9% PF (SALINE LOCK) 10ML VIAL/SYR IV SCH (12:49)
[2019-12-09 13:00] VITALS: BP 140/79
--- NOTE | 2019-12-09 13:41 | NUR ---
8580 12/09/19 I called [facility] Platform Inspector Carrington to request that authorization be provided for patient's continue stay. Unable to reach case manager specialist after 2 phone call attempts. Provided message stating the above on voicemail at [phone]. I also left message regarding home oxygen-still has not been delivered yet. I called alternate number for [employer] [phone] and left message regarding home oxygen as well.
--- NOTE | 2019-12-09 14:15 | NUR ---
I received a call from Nancie at [facility] ([phone]) asking for confirmation that patient was to discharge home today-she will give me a call back regarding the ETA for portable oxygen tank.
--- NOTE | 2019-12-09 15:27 | NUR ---
I called [facility] and was told the ETA for portable oxygen tank to bedside is between 3-5pm-I relayed this information to nurse Fely.
--- NOTE | 2019-12-09 17:10 | NUR ---
Oxygen delivered to bedside patient instructed on use, verbalized understanding.
[2019-12-09] MEDS ORDERED: IOHEXOL 350 MG/ML 100ML IJ ONE (18:12)
--- NOTE | 2019-12-09 18:30 | NUR ---
DISCHARGE Discharge instructions given as ordered. Encourage to follow up with PMD as instructed. All questions and concerns addressed. Patient verbalized understanding. Medication reconciliation form completed and copy given to patient. Picc line removed, pressure dressing applied. Prescriptions delivered to patient bed side from [facility]. Patient taken to vehicle via wheelchair with all personal belongings, accompanied by staff. No signs or symptoms of distress noted at this time.
== END 2019-12-09 18:30 | disposition home or self-care (01) | DRG 710 ==
LOC: ER 19:59 → TELE 20:00 → TELE-WESTW 11-25 03:11 → ICU WEST 11-25 15:12 → TELE-WESTW 11-30 21:50 → WEST WING 12-08 11:38
PROVIDERS: ADMIT Nurse Practitioner; ATTEND Internal Medicine
PROC: 02HV33Z Insertion of Infusion Device into Superior Vena Cava, Percutaneous Approach (ICD-10-PCS; 2019-11-25)
PROC: 0FT40ZZ Resection of Gallbladder, Open Approach (ICD-10-PCS; 2019-11-25)
PROC: 5A1945Z Respiratory Ventilation, 24-96 Consecutive Hours (ICD-10-PCS; 2019-11-25)
PROC: 0BH17EZ Insertion of Endotracheal Airway into Trachea, Via Natural or Artificial Opening (ICD-10-PCS; 2019-11-25)
PROC: 0FJ44ZZ Inspection of Gallbladder, Percutaneous Endoscopic Approach (ICD-10-PCS; principal; 2019-11-25 12:48)
DX: A41.9 Sepsis, unspecified organism (principal); J96.00 Acute respiratory failure, unspecified whether with hypoxia or hypercapnia; E43 Unspecified severe protein-calorie malnutrition; N17.0 Acute kidney failure with tubular necrosis; R65.21 Severe sepsis with septic shock; K82.A2 Perforation of gallbladder in cholecystitis; Z99.11 Dependence on respirator [ventilator] status; G92 Toxic encephalopathy; E66.01 Morbid (severe) obesity due to excess calories; E78.5 Hyperlipidemia, unspecified; E87.6 Hypokalemia; G47.30 Sleep apnea, unspecified; K66.0 Peritoneal adhesions (postprocedural) (postinfection); K80.00 Calculus of gallbladder with acute cholecystitis without obstruction; I11.9 Hypertensive heart disease without heart failure; K82.A1 Gangrene of gallbladder in cholecystitis; E87.1 Hypo-osmolality and hyponatremia; Z68.42 Body mass index [BMI] 45.0-49.9, adult; Z83.3 Family history of diabetes mellitus; Z82.49 Family history of ischemic heart disease and other diseases of the circulatory system; Z87.11 Personal history of peptic ulcer disease; Z90.49 Acquired absence of other specified parts of digestive tract; Z90.710 Acquired absence of both cervix and uterus; Z98.51 Tubal ligation status; Z91.19 Patient's noncompliance with other medical treatment and regimen
CPT/HCPCS: 36415; 36569; 36600; 70450; 71045; 74177; 76705; 78226; 80048; 80053; 80061; 80076; 80320; 81001; 82140; 82150; 82270; 82805; 82962; 83036; 83605; 83690; 83735; 84443; 84484; 85007; 85014; 85018; 85025; 85027; 85610; 85730; 86850; 86900; 86901; 87040; 87070; 87081; 87086; 87205; 93005; 93306; 94002; 94003; 94640; 94668; 95819; 96361; 96368; 96374; 96375; 97110; 97116; 97163; 97530; C9113; G0378; J0690; J1450; J1815; J2185; J2250; J2405; J2543; J2704; J3490; J7042; P9047